=== PATIENT | male | born 1950 | race Caucasian/White ===

== ENCOUNTER 2019-02-25 08:10 | Day surgery (SDC) | payer BC, MEDICARE, OTHER, SELFPAY ==
[2019-02-25 08:33] VITALS: BP 132/83; PULSE 72; RESP 16; TEMP 36.4; O2SAT 97
[2019-02-25] MEDS: Lactated Ringers 1,000 ML 80 ML IV (08:41)
--- NOTE | 2019-02-25 10:59 | W.COLOREPORT ---
Date of service: 02/25/19 Time of Service: 11:00 Colonoscopy Report Date of procedure: 02/25/19 Pre-op diagnosis general: polyps/family hx of CRC Post-op diagnosis procedure note: other Procedure: CE- incomplete. Could not get passed R flexure Surgeon: Antonieta Boyer Estimated blood loss (mL): 0 Pathology: none sent Complications: None Disposition: same day Prep: Miralax/Dulcolax Retraction Time: 12 mins Procedure Description: After informed consent was obtained the patient was taken to the procedure room and placed in a left decubitous position. Monitors were applied and a time out was done. The patients name, date of , procedure, allergies to medications and metal in their body was reviewed. The patient was then sedated. Once sedated and comfortable a rectal exam was done. External exam was normal. Internal exam revealed a normal sphincter tone and no palpable masses. The prostate nl. The scope was then introduced and retrofelexed. I could not pass the scope through the R flexure. Twenty minutes was spent in trying to pass the scope- including pressure and mult different positions/repositioning. He does have severe diverticula that extend all the way to the right colon. There are no signs of active bleeding or infection. There were no polyps seen. no internal hemorrhoids were identified. The prep was good. The scope was then slowly retracted over 15 minutes back into the rectum. The scope was removed and the patient was woken up and taken back to Same day surgery in stable condition. He does need to have a BE for completeness. If this is negative- The patient tolerated the procedure well and there were no immediate complications. Follow up: The patient does not require any further colonoscopies.
--- NOTE | 2019-02-25 11:27 | W.PM.DSUDISC ---
Discharge Plan Disposition Patient Disposition: HOME Condition: Good Discharge Details Reason For Visit: colonoscopy Attending Provider: Antonieta Boyer Primary Care Provider: Isauro Bob Home Meds and New Rx's Prescriptions: Continued valsartan 160 mg tablet 160 mg PO DAILY Qty: 90 RF: 1 Excedrin Extra Strength 1 EACH tablet 1 ea PO p PRNRF: 0 aspirin [Aspirin Low-Strength] 81 MG tablet,chewable 81 mg PO DAILY RF: 0 diphenhydramine-acetaminophen [Acetaminophen PM] 1 EACH tablet 2 ea PO HS RF: 0 simvastatin 40 mg tablet 40 mg PO DAILY Qty: 90 RF: 3 Discharge Instructions Additional Instructions: Findings:Severe divertiuclar Dx. Can't complete the CE. Need to have BE in am. cl liquids only today. Nothing to eat or drink after midnight Please report to outpt radiology at 8:45am to register. Follow up:repeat CE in 5 yrs Please call if you develop: fevers >101.5 Nausea or Vomiting Abdominal pain that is not transient DAY SURGERY UNIT POST COLONOSCOPY INSTRUCTIONS 1. Because there will be medication in your system for the next 24 hours, you may feel a little sleepy. Your coordination will be affected. Therefore: a. Do not drive or operate dangerous equipment for 24 hours. b. Do not drink alcohol beverages for 24 hours (not even beer). c. Plan to go home and rest for the day. 2. Generally there are no restrictions on your activity after a day or so has gone by, but you may feel a bit fatigued for a few days. 3 After you arrive home you may have a light meal and return to a normal diet as you can tolerate it without feeling sick to your stomach. 4. After surgery, you may feel pain or discomfort. This should be only transient, but if it persists please contact your doctor. 5. If there are any questions regarding the findings of your procedure, please feel free to contact your doctor. 6. If you are unable to contact your doctor with a problem, contact the hospital at [phone]. 7. Continue all your regular medications unless directed otherwise. I understand the above instructions and have no questions. Signature of Patient or Responsible Adult Escort Date/Time Name of Responsible Adult Escort Signature of Nurse Date/Time Stand Alone Forms: Colonoscopy Post Instructions, Press Ganey (DSU) Diet:: cl liq only until the BE DS: Diagnosis Discharge Diagnosis (1) Adenoma of large intestine: Status: Acute (2) Diverticula of colon: Status: Acute
[2019-02-25 11:30] VITALS: BP 107/65; PULSE 72; RESP 16; TEMP 36.6; O2SAT 97
[2019-02-25 12:14] VITALS: BP 115/66; PULSE 53; RESP 20; TEMP 36; O2SAT 97
[2019-02-25 12:22] VITALS: BP 125/67; PULSE 56; RESP 18; TEMP 36.6; O2SAT 99
== END 2019-02-25 12:40 | disposition home or self-care (01) ==
PROVIDERS: PCP Family Medicine; Visit Provider Surgery
PROC: 0DJD8ZZ Inspection of Lower Intestinal Tract, Via Natural or Artificial Opening Endoscopic (ICD-10-PCS; CPT 45378; principal; 2019-02-25 09:15)
DX: Z12.11 Encounter for screening for malignant neoplasm of colon (principal); K57.30 Diverticulosis of large intestine without perforation or abscess without bleeding; Z86.010 Personal history of colon polyps; I10 Essential (primary) hypertension
CPT/HCPCS: 45378; J2250; J3010

== ENCOUNTER 2019-02-26 02:18 | Outpatient (CLI) | payer BC, MEDICARE, OTHER, SELFPAY ==
--- NOTE | 2019-02-26 10:50 | DI.RAD_ITS ---
EXAM: RF BARIUM ENEMA CLINICAL HISTORY: incomplete colonoscopy,h/o colonic polyps, family h/o colon TECHNIQUE: Full column barium enema. Patient tolerated the procedure well. COMPARISON: No exams were available for comparison FINDINGS: No mass or stricture is seen. There are innumerable diverticula throughout the colon, greatest in t he descending and sigmoid regions. The appendix and small bowel were visualized. IMPRESSION: Diverticulosis. No evidence of mass or stricture.
== END 2019-02-26 02:38 ==
PROVIDERS: PCP Family Medicine; Visit Provider Surgery
DX: D12.3 Benign neoplasm of transverse colon; K57.30 Diverticulosis of large intestine without perforation or abscess without bleeding; Z80.0 Family history of malignant neoplasm of digestive organs
CPT/HCPCS: 74270

== ENCOUNTER 2019-06-11 00:08 | Outpatient (CLI) | payer BC, MEDICARE, OTHER, SELFPAY ==
[2019-06-11 08:25] LABS: Calculated LDL 95 mg/dL (<100); Cholesterol 210 mg/dL (<200); HDL Cholesterol 104 mg/dL (40-60); Triglyceride 58 mg/dL (<150)
[2019-06-14 10:30] LABS: PSA, Screening 1.2 ng/mL (0.0-6.5)
== END 2019-06-11 00:28 ==
PROVIDERS: PCP Nurse Practitioner; Visit Provider Nurse Practitioner
DX: I10 Essential (primary) hypertension (principal); E78.2 Mixed hyperlipidemia; Z12.5 Encounter for screening for malignant neoplasm of prostate
CPT/HCPCS: 36415; 80061; 84153; 82565

== ENCOUNTER 2020-09-13 04:43 | Outpatient (CLI) | payer MEDICARE, OTHER, SELFPAY ==
[2020-09-13 11:51] LABS: CREATININE 0.9 mg/dL (0.70-1.30); Glucose 99 mg/dL (74-106)
[2020-09-13 12:21] LABS: Calculated LDL 78 mg/dL (<100); Cholesterol 216 mg/dL (<200); HDL Cholesterol 120 mg/dL (40-60); Triglyceride 90 mg/dL (<150)
== END 2020-09-13 04:44 | disposition home or self-care (01) ==
LOC: LBO 04:43
PROVIDERS: PCP Nurse Practitioner; Visit Provider Nurse Practitioner
DX: I10 Essential (primary) hypertension (principal); N52.9 Male erectile dysfunction, unspecified
CPT/HCPCS: 36415; 80061; 82947; 82565

== ENCOUNTER 2021-06-28 02:52 | Outpatient (CLI) | payer MEDICARE, OTHER, SELFPAY ==
[2021-06-28 11:31] LABS: ALT 50 U/L (16-63); AST 23 U/L (15-37); Albumin 4.4 g/dL (3.4-5.0); Alkaline Phosphatase 80 U/L (46-116); Anion Gap 8.4 mmol/L (3-11); BUN 13 mg/dL (7-18); Bilirubin, Total 0.6 mg/dL (0.2-1.0); CO2 28.6 mmol/L (21.0-32.0); Calcium 9.3 mg/dL (8.5-10.1); Chloride 101 mmol/L (98-107); Glucose 96 mg/dL (74-106); Potassium 3.9 mmol/L (3.5-5.1); Sodium 138 mmol/L (136-145); TSH (W/Ref FT4) 2.51 uIU/mL (0.36-3.74); Total Protein 7.3 g/dL (6.4-8.2)
== END 2021-06-28 02:53 | disposition home or self-care (01) ==
LOC: LBO 02:52
PROVIDERS: PCP Nurse Practitioner; Visit Provider Nurse Practitioner
DX: F41.9 Anxiety disorder, unspecified (principal); I10 Essential (primary) hypertension
CPT/HCPCS: 36415; 80053; 84443

== ENCOUNTER 2021-10-26 01:25 | Outpatient (CLI) | payer MEDICARE, OTHER, SELFPAY ==
[2021-10-26 07:59] LABS: Calculated LDL 91 mg/dL (<100); Cholesterol 213 mg/dL (<200); HDL Cholesterol 113 mg/dL (40-60); Triglyceride 45 mg/dL (<150)
== END 2021-10-26 01:26 | disposition home or self-care (01) ==
LOC: LBO 01:25
PROVIDERS: PCP Nurse Practitioner; Visit Provider Nurse Practitioner
DX: E78.2 Mixed hyperlipidemia (principal)
CPT/HCPCS: 36415; 80061

== ENCOUNTER 2021-11-29 11:28 | Inpatient (IN) | payer MEDICARE, OTHER, SELFPAY ==
[2021-11-29] VITALS (21 sets, daily range): BP systolic 134–167; BP diastolic 79–98; PULSE 53–72; RESP 9–24; TEMP 35.3–37.2; O2SAT 94–98
--- NOTE | 2021-11-29 11:45 | RT.EKG_ITS ---
APPROVED REPORT Exam: Resting ECG Reason for Exam: ?cva Patient Location: E HR:63 bpm ECG Measurements Heart Rate 63 AXIS WV 224 P 57 QRSd 79 QRS 52 QT 408 T 56 QTc 418 Conclusion Sinus rhythm...normal P axis, V-rate 60- 99 Prolonged WV interval...WV >220, V-rate 50- 90
--- NOTE | 2021-11-29 11:45 | DI.CT_ITS ---
Exam(s) CT HEAD WO EXAM: CT HEAD WO CLINICAL HISTORY: left hand and face numb. TECHNIQUE: Imaging Protocol: Axial computed tomography images with coronal and sagittal reformatted images were created and reviewed COMPARISON: No exams were available for comparison FINDINGS: There are no skull fractures. There is mucosal thickening and some fluid within the left maxillary sinus and there is a prominent medial wall surgical defect in the left maxillary sinus. Right maxill juan sinus is clear. Sphenoid and frontal sinuses as well as ethmoidal air cells are clear. Mastoid air cells are clear. There is no evidence of intracranial hemorrhage, mass effect, or shift of midline structures. There are no extra-axial fluid collections. The ventricles are not enlarged or shifted and there is no blo od within the ventricular system nor within the basal cisterns. There is calcification noted within both vertebral arteries at the skull base as well as within the i nternal carotid arteries skull base. IMPRESSION: No acute intracranial findings on this noninfused CT scan of the brain. Calcified internal carotid arteries and vertebral arteries at the skull base If clinically indicated follow-up MRI can be performed. Report called by myself to the ER provider RADIATION DOSE DELIVERED: 758.88mGy.cm Total DLP DATA REPOSITORY: All CT scans at this facility are submitted to the National Radiology Data Registry (NRDR) Dose Index Registry (DIR) with the [employer] (ACR). RADIATION OPTIMIZATION: All CT scans at this facility use at least one of these dose optimization te chniques: automated exposure control; mA and/or kV adjustment per patient size (includes targeted exa ms where dose is matched to clinical indication); or iterative reconstruction.
--- NOTE | 2021-11-29 11:54 | ED.GENADUL_ITS ---
Discharge Plan Disposition Patient Disposition: [facility] INPATIENT Condition: Stable Discharge Details Chief Complaint: GenMedical Clinical Impression: Acute CVA (cerebrovascular accident) Primary Care Provider: Jocelyne Harry ED Provider: Sam Yepez Home Meds and New Rx's Prescriptions: No Action atorvastatin 20 mg tablet 20 mg PO QPM Qty: 90 4RF Excedrin Extra Strength 1 EACH tablet 1 ea PO p PRN aspirin [Aspirin Low-Strength] 81 MG tablet,chewable 81 mg PO DAILY diphenhydramine-acetaminophen [Acetaminophen PM] 25-500 mg tablet 2 tab PO HS PRN amlodipine 5 mg tablet 5 mg PO DAILY Qty: 90 4RF valsartan 320 mg tablet 320 mg PO DAILY Qty: 90 4RF Medical Decision Making 71 yo male with hx of htn, hld, comes in with complaints of left facial numbness and a tingling sensation in his hand when he woke up this morning around 5am. He denies any changes in vision, changes in speech, gait difficulties or weakness. He arrives stable with a normal unassisted gait. He is caox4 with clear speech. He has no facial droop, eomi, perrl, no drift. He localizes the numbnes on his face over the left zygomatic arch. He can feel me touching in his area but states it feels different than his right side of his face. He has no deficits in sensation in his hands or legs with 5/5 strength in all extremities. His NIH is 0 so seems unlikely cva though given his age and risk factors will evaluate further with ct head, cbc, cmp, ekg and troponin. ct unremarkable and mri had a free time slot so mri and mra ordered, and he does have a small thalamic stroke. He remains stable, discussed with hospitalist who agrees with admission, will also give aspirin and plavix. Differential Diagnosis Differential Diagnosis: cva/tia, electrolyte abnormality, paresthesia Medical Records Medical records reviewed: Yes I reviewed the patient's medical records. Imaging Data Radiologic Study: Attestation: I personally reviewed and interpreted this imaging study as follows: Imaging: CT Scan Radiologist's impression: MPRESSION: No acute intracranial findings on this noninfused CT scan of the brain. Calcified internal carotid arteries and vertebral arteries at the skull base If clinically indicated follow-up MRI can be performed. Radiologic Study #2: Attestation: I personally reviewed and interpreted this imaging study as follows: Imaging: MRI Radiologist's impression: IMPRESSION: 1. No hemodynamically significant stenosis in the carotid arteries in the neck. 2. Patent bilateral vertebral arteries in the neck.? The left vertebral artery is dominant. Radiologic Study #3: Attestation: I personally reviewed and interpreted this imaging study as follows: Imaging: MRI Radiologist's impression: small thalamic stroke Lab Data Lab results reviewed: Yes I reviewed the patient's lab results. ECG Data Attestation: I personally reviewed and interpreted this ECG (s) as follows: Prior ECG tracings: not available for review Interpretation: sinus rhythm, rate of 63, no acute st t wave ischemic findings, pr 224 HPI General Mode of arrival: ambulatory . Date/Time Provider Initiated Documentation: 11/29/21 11:32 . Limitations to Documentation: no limitations . Information obtained by: patient . History of Present Illness 71 year old M presents to the emergency department with the chief complaint of numb on left face, and is localized to the face. Patient started experiencing this hour(s) (6) and it has been constant. No relieving factors improve symptom(s), No exacerbating factors reported . Patient notes other (tingling in left hand). Patient did receive the following treatments prior to arrival, none Related Data Home Medications Medication Instructions Recorded Confirmed [id number] 250 1 ea PO p PRN 01/30/15 11/29/21 mg-250 mg-65 mg tablet (Excedrin Extra Strength) aspirin 81 mg chewable tablet 81 mg PO DAILY 11/17/15 11/29/21 (Aspirin Low-Strength) diphenhydramine 25 2 tab PO HS PRN 05/25/19 11/29/21 mg-acetaminophen 500 mg tablet (Acetaminophen PM) atorvastatin 20 mg tablet 20 mg PO QPM #90 tabs 09/22/20 11/29/21 amlodipine 5 mg tablet 5 mg PO DAILY #90 tabs 11/14/21 11/29/21 valsartan 320 mg tablet 320 mg PO DAILY #90 tabs 11/26/21 11/29/21 Previous Rx's Medication Instructions Recorded atorvastatin 20 mg tablet 20 mg PO QPM #90 tabs 09/22/20 amlodipine 5 mg tablet 5 mg PO DAILY #90 tabs 11/14/21 valsartan 320 mg tablet 320 mg PO DAILY #90 tabs 11/26/21 Allergies Allergy/AdvReac Type Severity Reaction Status Date / Time CATNIP AdvReac Intermediate NASAL Uncoded 11/29/21 11:40 CONGESTION General Stated Complaint: GenMedical SUMANTH: 3 Review of Systems All systems reviewed & are unremarkable except as noted in HPI and below Constitutional Constitutional: Denies chills, Denies fever(s) and Denies weakness Eyes Eyes: Denies loss of vision Cardiovascular Cardiovascular: Denies chest pain and Denies dyspnea Respiratory Respiratory: Denies cough and Denies dyspnea Gastrointestinal Gastrointestinal: Denies abdominal pain, Denies nausea and Denies vomiting Musculoskeletal Musculoskeletal: Denies joint swelling Integumentary/Breasts Skin/Breast: Denies rash Neurologic Neurologic: Denies loss of vision and Denies weakness PFSH All Active Problems (Updated 11/29/21 @ 14:54 by Sam Yepez MD) Acute CVA (cerebrovascular accident) (Acute) Adenoma of large intestine (Acute 04/26/13) tubular adenoma 04/2013; repeat 5 yr colo- 2019- FIT testing in 5 years Essential hypertension (Acute 09/01/11) Impotence (Acute 03/31/12) Mixed hyperlipidemia (Acute 09/06/11) goal LDL<100; risk 12% calculated 02/2010 Sensorineural hearing loss, unspecified (Acute 09/06/11) Primary osteoarthritis of right hip (Chronic) Medical History Anxiety Diverticula of colon First degree AV block 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 Bruno Vertigo Surgical History Colonoscopy - IV Sedation (09/08/09) Dr Kingsley-colonoscopy to cecum,polypectomy and anoscopy w/banding of internal hemorrhoid Colonoscopy - IV Sedation (04/26/13) Dr Kingsley-colonoscopy to cecum,polypectomy and anoscopy w/banding of internal hemorrhoid H/O colonoscopy 02/27 with MAC- severe diverticulosis History of tonsillectomy S/P tendon repair left hand Toe nail issue (11/11/16) R great toe ingrown nail, Elli Family History Mother , lung cancer at age 84. Lung cancer Hypertension Hyperlipidemia Father , lung ca at age 80. Lung cancer Throat cancer Brother Heart disease Hypertension Brother Hyperlipidemia Hypertension Brother Hyperlipidemia Hypertension Son Hyperlipidemia Hypertension Son Alcohol abuse Depression Hyperlipidemia Hypertension Maternal Grandfather , age 75 Heart disease Stroke Paternal Grandfather , age 65 Colon cancer Maternal Grandmother , age 69 Lung cancer Stomach cancer Paternal Grandmother , age 79 Lung cancer Heart disease Stroke Social History Smoking/Tobacco Use Status: Former Tobacco Use tobacco type: cigarettes Quit Date: 05/12/78 Tobacco: How many years used: 15 Second Hand Exposure: Yes Smoking risk assessment performed?: Yes Alcohol Intake: current Alcohol Intake frequency: a few times a week Alcohol type: beer, wine and hard liquor Drug use: Never Substance use type: does not use Caregiver/Support person: No Household members: spouse Housing: house Number of Children: 5 Do you need help understanding health information?: Rarely current occupation: retired Pets and animals: Yes Pets and animals: cat(s) and dog(s) Sexually active: Yes Do you think of yourself as: straight/heterosexual Current gender identity: male What is your relationship status?: How often do you talk on the phone with friends or family?: three or more times per week How often do you get together with friends or relatives?: three or more times per week How often do you attend samaritan or mormonism services?: decline to answer Do you belong to any clubs or organized social groups?: yes Panel score (0-1 are the most socially isolated patients): 3 What type of physical activity do you participate in: walking Duration: 30-45 minutes/day Frequency: daily Alethea/Catholic: Caodaism Special alethea needs: No Seatbelt use: always Drive intox or ride 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 Working smoke detector in home: Yes Carbon monox detector in home: Yes Do you feel safe at home: Yes Do you feel safe in your relationship?: Yes Exam Const General: no acute distress Orientation: alert HENMT Head: normal to inspection Ears: external ears normal General nose exam: external nose normal Mouth: moist mucous membranes Eyes General: appearance normal, both eyes and all related structures Neck Neck: normal visual inspection Resp Effort & Inspection: normal respiratory effort and able to speak in complete sentences Cardio Rate: regular rate Skin General skin exam: no rashes or lesions noted Neuro General: patient alert and patient oriented x3 Extrem General: normal to inspection Psych Mental Status: mental status grossly normal Course Vital Signs Vital signs: Vital Signs Temperature 37.2 C 11/29/21 11:33 Pulse 69 11/29/21 11:33 Respiratory Rate 16 11/29/21 11:33 Blood Pressure 163/83 H 11/29/21 11:33 Pulse Oximetry 97 11/29/21 11:33 Temperature 37.2 C 11/29/21 11:33 Pulse 69 11/29/21 11:33 Respiratory Rate 16 11/29/21 11:33 Respiratory Effort 11/29/21 11:42 Respiratory Depth Normal 11/29/21 11:42 Respiratory Pattern Normal 11/29/21 11:42 Blood Pressure 163/83 H 11/29/21 11:33 Pulse Oximetry 97 11/29/21 11:33 Comment 11/29/21 11:33
--- NOTE | 2021-11-29 12:15 | DI.MRI_ITS ---
Exam(s) MR BRAIN WO EXAM: MR BRAIN WO CLINICAL HISTORY: ?cva TECHNIQUE: Multiplanar multisequence MRI of the brain was performed. COMPARISON: MR MR ANGIO BRAIN WO from 11/29/[address] HEAD WO from 11/29/2021 FINDINGS: CEREBRAL PARENCHYMA: There is no evidence of intracranial hemorrhage, mass effect, or shift of midline structures. There are no extra-axial fluid collections. Ventricles are not enlarged or shifted. There is no significant signal abnormality in the cerebellar hemispheres, nor within the lou and mid brain. However, there is a small focus of signal abnormality in the right lou which also exhibits s mall focus of restricted diffusion and is therefore a nonhemorrhagic acute lacunar infarct. Small ar ea of increased signal just lateral to this in the right external capsule seen on FLAIR and T2 imagin g but does not exhibit restricted diffusion. There is also an area of cortical signal abnormality on FLAIR imaging in the left frontal lobe but this is also negative for restricted diffusion on DWI. There is no prominent abnormal signal abnormality in the periventricular white matter. PITUITARY GLAND: No mass nor parasellar abnormality. No obvious abnormality in the cavernous sinuses. FLOW VOIDS: The expected flow void are noted. No evidence of obvious aneurysm nor obvious vascular ma lformation. PARANASAL SINUSES: Left maxillary sinus circumferential mucosal thickening and there is also large gomez rgical defect in the medial wall the left maxillary sinus. Right maxillary sinus is clear. ORBITS: No obvious findings. IMPRESSION: Findings are consistent with a small nonhemorrhagic acute lacunar infarct in the right thalamus. See separate MRA reports DATA REPOSITORY:
[2021-11-29 12:21] LABS: Abs Immature Grans 0.02 10^3/uL (0.0-0.06); Absolute Basophil Count 0.02 10^3/uL (0.0-0.2); Absolute Eosinophil Count 0.07 10^3/uL (0.0-0.7); Absolute Lymphocyte Count 0.96 10^3/uL (1.2-3.4); Absolute Monocyte Count 0.45 10^3/uL (0.1-0.8); Absolute Neutrophil Count 4.52 10^3/uL (1.2-6.7); Basophils % 0.3; Eosinophils % 1.2; HCT 43.6 % (40.0-50.0); HGB 14.8 g/dL (13.5-17.5); Immature Grans % 0.3; Lymphocytes % 15.9; MCH 31.6 pg (27.0-33.0); MCHC 33.9 % (32.0-36.0); MCV 93 fL (80-95); MPV 9.2 fL (8.0-11.0); Monocytes % 7.5; Neutrophils % 74.8; Platelet Count 193 10^3/uL (130-400); RBC 4.69 10^6/uL (4.36-5.78); RDW 13.2 % (11.8-14.1); RDW-SD 44.9 fL; WBC 6.04 10^3/uL (4.4-10.8)
[2021-11-29 12:49] LABS: ALT 28 U/L (16-63); AST 15 U/L (15-37); Albumin 4.3 g/dL (3.4-5.0); Alkaline Phosphatase 70 U/L (46-116); Anion Gap 9.8 mmol/L (3-11); BUN 17 mg/dL (7-18); Bilirubin, Total 0.5 mg/dL (0.2-1.0); CO2 25.2 mmol/L (21.0-32.0); CREATININE 0.8 mg/dL (0.70-1.30); Calcium 9.3 mg/dL (8.5-10.1); Chloride 106 mmol/L (98-107); Glucose 102 mg/dL (74-106); Sodium 141 mmol/L (136-145); TSH (W/Ref FT4) 2.47 uIU/mL (0.36-3.74); Total Protein 7.6 g/dL (6.4-8.2); Troponin I < 50 ng/L (<or=60)
--- NOTE | 2021-11-29 13:30 | DI.MRI_ITS ---
Exam(s) MR ANGIO BRAIN WO EXAM: MR ANGIO BRAIN WO CLINICAL HISTORY: stroke symptoms TECHNIQUE: Performed on 1.5 Anna unit with [id number] sequence COMPARISON: No exams were available for comparison FINDINGS: ANTERIOR CIRCULATION: Both internal carotid arteries are patent in the skull base-carotid canals as well as within the cave rnous sinuses. The ophthalmic arteries are originate in conventional fashion off of the intracaverno us internal carotid arteries and appear patent. The supraclinoid aspects of both internal carotid ar teries are patent. Left A1 segment is patent. The right A1 segment is very thin. Both anterior cer ebral arteries are patent. There is no aneurysm at the level of the anterior communicating artery. Both middle cerebral arteries are patent. No significant stenosis. No occlusion. No aneurysms. POSTERIOR CIRCULATION: The basilar artery is formed at the skull base by both vertebral arteries. Th e basilar artery ascends with normal luminal diameter. Distally it gives off patent bilateral superi or cerebellar arteries and above this level terminates as patent bilateral posterior cerebral arterie s. There are no posterior communicating arteries on either side of the [id number]. No aneurys m of the tip of the basilar artery. IMPRESSION: 1. Right A1 segment is occluded or highly stenotic. Left A1 segment is patent as are both anterior c erebral arteries. 2. No significant findings in the posterior circulation. Findings on this patient discussed by myself with the ER physician. DATA REPOSITORY:
--- NOTE | 2021-11-29 13:42 | DI.MRI_ITS ---
Exam(s) MR ANGIO NECK WO EXAM: MAGNETIC RESONANCE ANGIOGRAPHY OF THE NECK CLINICAL HISTORY: stroke symptoms. TECHNIQUE: Performed on 1.5 sherrie unit with [id number] sequence. CONTRAST MATERIAL: IV Contrast: None. COMPARISON: CT scan from earlier today was reviewed. Also MRI. FINDINGS: ANTERIOR CIRCULATION: The visualized common carotid arteries ascend with normal luminal diameters. T here is no significant stenosis at the left carotid bifurcation and proximal left internal carotid te rminal carotid artery and the left ICA is nicely patent above this level in the neck. Right common carotid artery exhibits normal diameter. There does not appear to be prominent stenosis at the carotid bifurcation and proximal right internal carotid artery. The right ICA above this lev el in the neck is patent. POSTERIOR CIRCULATION: Vertebral arteries are patent. There originated conventional fashion off of t he subclavian arteries. The left vertebral artery is dominant. No evidence of intraluminal thrombus nor dissection in either vertebral artery. At the skull base both vertebral arteries contribute to the formation of the basilar artery, with the left being dominant. IMPRESSION: 1. No hemodynamically significant stenosis in the carotid arteries in the neck. 2. Patent bilateral vertebral arteries in the neck. The left vertebral artery is dominant. DATA REPOSITORY:
[2021-11-29] MEDS: Clopidogrel 300 MG TAB 600 MG PO (15:12)
[2021-11-29 15:28] LABS: Source Nasal/Nares
[2021-11-29 15:54] LABS: Troponin I < 50 ng/L (<or=60)
--- NOTE | 2021-11-29 15:56 | DI.US_ITS ---
APPROVED REPORT EXAM: Comprehensive 2D, Doppler, and color-flow Echocardiogram Patient Location: ER Legal Technician: Lizzie Marcelino RDCS (AE) Indications: CVA Other Information Study Quality: Adequate Conclusion Normal left ventricular wall thickness and chamber size. Estimated ejection fraction is 55 to 60%. Wall motion is normal Normal right ventricular size and systolic function Both atria are normal in size There is no structural or hemodynamically significant valvular disease Wall motion Left Ventricle The left ventricle is normal size. The left ventricular systolic function is normal. The left ventric ular ejection fraction is within the normal range. There is normal left ventricular wall thickness. T here is normal LV segmental wall motion. There is no ventricular septal defect visualized. LVEF is 57 %. Right Ventricle The right ventricle is normal size. The right ventricular systolic function is normal. Atria The left atrium size is normal. The right atrium size is normal. The interatrial septum is intact wit h no evidence for an atrial septal defect. Aortic Valve The aortic valve is normal in structure. Aortic valve is trileaflet. There is no aortic valvular sten osis. No aortic regurgitation is present. Mitral Valve The mitral valve is normal in structure. No evidence of mitral valve stenosis. Trace mitral regurgita tion. Tricuspid Valve The tricuspid valve is normal in structure. There is no tricuspid valve stenosis. Trace tricuspid reg urgitation. Unable to assess PA pressure. Pulmonic Valve The pulmonary valve is normal in structure. There is no pulmonic valvular stenosis. Trace pulmonic re gurgitation. Great Vessels The aortic root is normal in size. The ascending aorta is normal in size. Aortic arch is not well vis ualized. IVC is normal in size and collapses >50% with inspiration. Pericardium There is no pericardial effusion. 2D Dimensions IVSD d PLAX 0.87 cm M: 0.6-1.2 LV Vol A2C d MOD 96.4 mL LVPW d PLAX 0.91 cm M: 0.6 - 1.2 LV Vol A4C d MOD 108.8 mL LVID d PLAX 4.24 cm M: 4.2 - 5.8 LA vol/ BSA A2C s A-L 21.5 mL/m2 LVDs 3.00 cm M: 2.5 - 4.0 LA vol/ BSA A4C s A-L 9.9 mL/m2 Ao Root d 3.01 cm M: 3.1 - 3.7 LA Vol/ BSA Biplane s A-L 16.6 mL/m2 RA Area A4C 16.17 cm2 LA Area A4C s MOD 9.30 cm2 RA Vol/ BSA A4C s A-L 20.9 mL/m2 LA Area A2C s MOD 15.60 cm2 Ao Asc Diam d 3.32 cm M: 2.6 - 3.4 LV EF A4C MOD 57.4 % LV EF Teichholz 56.3 % LV EF A2C MOD 56.6 % LVEF ([facility]) 56.62 % M: 52 - 72 LV EF Biplane MOD 56.6 % LV Volume 77.01 mL M: 62 - 150 SV 58.19 mL LV Volume Index 38.50 mL/m2 M: 34 - 74 SV Index 29.02 mL/m2 LV Vol Biplane MOD 102.8 mL FS 29.10 % M-Mode TAPSE 2.08 cm (M/F) >1.7 LV Diastology MV E' medial 0.062 (>0.07 m/s) E/A Ratio 0.8 LV E/e MED 9.65 (<14) MV E Vmax 0.60 (0.4-1.3 m/s) MV E' lateral 0.093 (>0.1 m/s) MV A Vmax 0.75 (0.4-1.3 m/s) LV E/e LAT 6.40 (<14) MV E/A Ratio 0.77 MV E/E' medial 9.67 MV E/E' lateral 6.45 Aortic Valve LVOT Area 3.72 cm2 AoV Area Vmax 2.61 cm2 LVOT Vmax 0.76 m/s AoV Area/ BSA (Vmax) 1.30 cm2/m2 LVOT Mean Jorge. 0.49 m/s AV Mean Jorge. 2.39 cm2 LVOT Peak Grad 2.3 mmHg AV Mean Jorge. Index 1.19 cm2/m2 LVOT Mean Grad 1.1 mmHg LVOT VTI 0.168 m LVOT Diam s 2.15 cm AoV Vmax 1.08 m/s Velocity Ratio 0.70 AoV Mean Jorge. 0.76 m/s AoV Peak Grad 4.7 mmHg LVOT SV 62.38 mL AoV Mean Grad 2.6 mmHg AoV VTI 0.223 m AoV Area VTI 2.79 cm2 AoV Area/ BSA (VTI) 1.39 cm/m2 Mitral Valve MV DT 267 (160-240 msec) MV PHT 77 msec MV Area PHT 2.85 cm2 MV VTI 0.252 m MV Area VTI 2.47 (4.0-6.0 cm2) Pulmonary Valve PV Vmax 0.92 (0.5-1.5 m/s) RVOT Peak Gr. 2.95 mmHg PV Peak Grad 3.4 mmHg RVOT Mean Gr. 1.40 mmHg PV Mean Grad 1.8 mmHg RVOT VTI 0.176 m PV VTI 0.163 m RVOT Vmax 0.86 m/s
--- NOTE | 2021-11-29 16:17 | NUR.NOTE ---
Pt admitted to med/surg, VSS, transferred in stretcher with tele, left with all belongings. Report called to Amanda WILKINS.
[2021-11-29 16:19] LABS: COVID-19 PCR Negative (Negative)
--- NOTE | 2021-11-29 17:07 | W.NEUROCONSU ---
Date of service: 11/29/21 Time of Service: 17:07 Assessment and Plan Assessment and plan (1) Acute CVA (cerebrovascular accident): Status: Acute Assessment and plan: Mr. Romero appears to have a very small right thalamic ischemic infarct/lacune but also with apparent secondary hemorrhage. Would not do DAPT at this time because of this. Hold anti-platelets for now. Would get a repeat CTH w/o at 12 hour post first CTH vs first thing in the am to look for expansion/presence of hemorrhage; or sooner if clinical symptoms change. If no evidence of hemorrhage, would resume clopidogrel 75mg daily for secondary stroke prevention - no aspirin. Work-up: -Telemetry with 30 day cleaning technician at discharge -A1c Medications: -antiplatelets as above -atorvastatin 80mg daily for secondary stroke prevention acutely with change to 40mg daily as an outpatient for goal LDL <70 Other: -Allow permissive hypertension -Probably doesn't need PT/OT; no deficits at present He should f/up in neurology clinic in 4-6weeks. History of Present Illness History of Present Illness Chief Complaint: stroke Narrative: Handedness: right. Mr. Romero is a 71 year-old man with hypertension, hyperlipidemia, prior large intestine tubular adenoma, anxiety, 1deg AV block, R hip OA, and chronic low back pain. Mr. Romero woke up with am with left cheek numbness and tingling in his left hand/fingers. His symptoms persisted as the morning went on such that he presented to the local urgent care and then referred to [facility] ER for possible stroke. He was not a candidate for tPA as he was outside of the time window and for minor symptoms. He was indeed found to have a stroke - very small - with concern for secondary hemorrhage. He takes 81mg aspirin daily and he was already given clopidogrel 600mg in the ER as hemorrhage was not initially noted on imaging. Clinically, he is stable vs improved. He feels his face is less numb but he has been rubbing it some much, he isn't sure. He has no headache. He is also on atorvastatin 20mg at baseline. He is also on valsartan and amlopdipine for his blood pressure but had run out of those medications a few days ago. Work-up: -CTH (11/29/21): no acute findings. I reviewed these images personally and this is my personal interpretation. -MRI brain (11/29/21): acute punctate ischemia in the R thalamus with surrounding hemosiderin deposit. In the same area there is a slightly larger hyperintensity on T2 with noting seen on T1 (isodense). He also has findings of a prior left frontal stroke. There is a also a hemosiderin deposit in the L basal ganglia which may represent prior hemorrhage or may be a calcification as seen on the CTH. I reviewed these images personally and this is my personal interpretation. -MRA head/neck (11/29/21): the proximal vertebral arteries are distorted due to motion artifact. The R A1 appears absent. I reviewed these images personally and this is my personal interpretation. -TTE: pending -LDL (10/26/21): 91 Review of Systems All systems reviewed & are unremarkable except as noted in HPI and below PFSH All Active Problems (Updated 11/29/21 @ 20:02 by Ryan Mayberry MD) DVT prophylaxis (Acute) Cerebrovascular accident (CVA) of right thalamus (Acute) Acute CVA (cerebrovascular accident) (Acute) Adenoma of large intestine (Acute 04/26/13) tubular adenoma 04/2013; repeat 5 yr colo- 2019- FIT testing in 5 years Essential hypertension (Acute 09/01/11) Impotence (Acute 03/31/12) Mixed hyperlipidemia (Acute 09/06/11) goal LDL<100; risk 12% calculated 02/2010 Sensorineural hearing loss, unspecified (Acute 09/06/11) Primary osteoarthritis of right hip (Chronic) Medical History Anxiety Diverticula of colon First degree AV block 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 Bruno Vertigo Surgical History Colonoscopy - IV Sedation (09/08/09) Dr Kingsley-colonoscopy to cecum,polypectomy and anoscopy w/banding of internal hemorrhoid Colonoscopy - IV Sedation (04/26/13) Dr Kingsley-colonoscopy to cecum,polypectomy and anoscopy w/banding of internal hemorrhoid H/O colonoscopy 02/27 with MAC- severe diverticulosis History of tonsillectomy S/P tendon repair left hand Toe nail issue (11/11/16) R great toe ingrown nail, Elli Family History Mother , lung cancer at age 84. Lung cancer Hypertension Hyperlipidemia Father , lung ca at age 80. Lung cancer Throat cancer Brother Heart disease Hypertension Brother Hyperlipidemia Hypertension Brother Hyperlipidemia Hypertension Son Hyperlipidemia Hypertension Son Alcohol abuse Depression Hyperlipidemia Hypertension Maternal Grandfather , age 75 Heart disease Stroke Paternal Grandfather , age 65 Colon cancer Maternal Grandmother , age 69 Lung cancer Stomach cancer Paternal Grandmother , age 79 Lung cancer Heart disease Stroke Social History Smoking/Tobacco Use Status: Former Tobacco Use tobacco type: cigarettes Quit Date: 05/12/78 Tobacco: How many years used: 15 Second Hand Exposure: Yes Smoking risk assessment performed?: Yes Alcohol Intake: current Alcohol Intake frequency: a few times a week Alcohol type: beer, wine and hard liquor Drug use: Never Substance use type: does not use Caregiver/Support person: No Household members: spouse Housing: house Number of Children: 5 Do you need help understanding health information?: Rarely current occupation: retired Pets and animals: Yes Pets and animals: cat(s) and dog(s) Sexually active: Yes Do you think of yourself as: straight/heterosexual Current gender identity: male What is your relationship status?: How often do you talk on the phone with friends or family?: three or more times per week How often do you get together with friends or relatives?: three or more times per week How often do you attend taoism or quaker services?: decline to answer Do you belong to any clubs or organized social groups?: yes Panel score (0-1 are the most socially isolated patients): 3 What type of physical activity do you participate in: walking Duration: 30-45 minutes/day Frequency: daily Alethea/Sikhism: Caodaism Special alethea needs: No Seatbelt use: always Drive intox or ride w/intox 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 81 Mg Tabec PO DAILY [facility] Atorvastatin Calcium 20 mg 11/29/21 20:00 Atorvastatin 20 Mg Tab PO QPM [facility] Clopidogrel Bisulfate 75 mg 11/30/21 08:30 Clopidogrel 75 Mg Tab PO DAILY [facility] Dimethicone/Zinc Oxide 0 gm 11/29/21 15:00 Anil Protect Cream 142 Gm Tube TP PRN PRN Docusate Sodium 100 mg 11/29/21 15:00 Docusate Sodium 100 Mg Cap PO TID PRN PRN IV Miscellaneous Supplies 1 each 11/29/21 12:00 Iv Access IV DIRECTED [facility] Magnesium Hydroxide 30 ml 11/29/21 15:00 Milk Of Magnesia 30 Ml Cup PO DAILY PRN PRN Polyethylene Glycol 17 gm 11/29/21 15:00 Polyethylene Glycol 3350 17 Gm Packet PO DAILY PRN PRN Constipation Sodium Chloride 0 ml 11/29/21 11:52 Normal Saline Flush 10 Ml Syr IVP PRN PRN Sodium Chloride 0 ml 11/29/21 20:00 Normal Saline Flush 10 Ml Syr IVP BID [facility] Valsartan 320 mg 11/30/21 08:30 Valsartan 80 Mg Tab PO DAILY [facility] Allergies CATNIP Adverse Reaction (Intermediate, Uncoded 11/29/21 11:40) NASAL CONGESTION Exam Narrative Exam Narrative: Physical Exam: Gen: Patient of apparent stated age, NAD Head and face: no facial or cranial abnormalities Neck: Supple, no meningismus, no occipital tenderness CV: + S1, S2, RRR, no murmur Resp: CTA B/L Abd: soft, nontender, nondistended Ext: No edema. No clubbing or cyanosis. No bony deformity. Neuro Exam: Language: fluency, naming, repetition, and comprehension intact; Mental Status: AAOx3, current events intact, fund of knowledge intact; Speech: no dysarthria Cranial nerves: Funduscopy: not performed CN II: visual redmond intact CN III, IV, : extraocular movements intact, no nystagmus, pupils symmetric and reactive to light CN V: face sensation intact to LT and PP CN VII: no facial asymmetry noted CN VIII: hearing intact bilaterally CN IX, X: palate rises symmetrically CN XI: trapezius/SCM 5/5 bilaterally CN XII: protrudes tongue symmetrically Sensory: intact to LT, PP in all extremities Motor: bulk and tone intact. Fine motor movements intact bilaterally. No pronator drift. Strength 5/5 throughout including the deltoids, biceps, triceps, wrist extensors, hip flexors, knee flexors, knee extensors, ankle flexors, and ankle extensors. Reflexes: 2+ at the biceps, triceps, brachioradialis, and patella; reduced at the achilles tendons bilaterally; toes down going bilaterally; Coordination: FTN and HTS intact bilaterally Gait: not tested Results Last Vital Signs Temp 96.4 F L 11/29/21 16:55 Pulse 58 L 11/29/21 16:55 Resp 18 11/29/21 16:55 BP 167/98 H 11/29/21 16:55 Pulse Ox 98 11/29/21 16:55 Labs Result diagrams: 11/29/21 12:10 11/29/21 12:10 Labs: Laboratory Results - last 24 hr 11/29/21 11/29/21 11/29/21 12:10 12:10 15:20 WBC 6.04 RBC 4.69 Hgb 14.8 Hct 43.6 MCV 93 MCH 31.6 MCHC 33.9 RDW 13.2 Plt Count 193 MPV 9.2 Immature Gran % 0.3 Neutrophils % 74.8 Lymphocytes % 15.9 Monocytes % 7.5 Eosinophils % 1.2 Basophils % 0.3 Nucleated RBC % 0.0 Absolute Neutrophils 4.52 Absolute Lymphocytes 0.96 L Absolute Monocytes 0.45 Absolute Eosinophils 0.07 Absolute Basophils 0.02 Sodium 141 Potassium 4.0 Chloride 106 Carbon Dioxide 25.2 Anion Gap 9.8 BUN 17 Creatinine 0.8 Estimated GFR/1.73 m2 >= 60.00 Glucose 102 Calcium 9.3 Magnesium 2.0 Total Bilirubin 0.5 AST 15 ALT 28 Alkaline Phosphatase 70 Troponin I < 50 < 50 Total Protein 7.6 Albumin 4.3 TSH 2.47 COVID-19 Source SARS-CoV-2 (PCR) 11/29/21 15:22 WBC RBC Hgb Hct MCV MCH MCHC RDW Plt Count MPV Immature Gran % Neutrophils % Lymphocytes % Monocytes % Eosinophils % Basophils % Nucleated RBC % Absolute Neutrophils Absolute Lymphocytes Absolute Monocytes Absolute Eosinophils Absolute Basophils Sodium Potassium Chloride Carbon Dioxide Anion Gap BUN Creatinine Estimated GFR/1.73 m2 Glucose Calcium Magnesium Total Bilirubin AST ALT Alkaline Phosphatase Troponin I Total Protein Albumin TSH COVID-19 Source Nasal/Nares SARS-CoV-2 (PCR) Negative
--- NOTE | 2021-11-29 18:43 | HPE_ITS ---
Date of service: 11/29/21 Time of Service: 18:43 Assessment and Plan Assessment and plan (1) Cerebrovascular accident (CVA) of right thalamus: Status: Acute Assessment and plan: Hold Plavix and aspirin for tonight. Check CT scan of the brain in the morning if there is no significant progression of hemorrhage then resume Plavix at 75 mg daily. Continue current dose of atorvastatin but check lipid profile. Goal is for an LDL under 70. Check glycohemoglobin A1c. Continue current antihypertensives but avoid significant hypotension. Obtain 30-day cardiac event recorder upon discharge. Follow-up with Dr. Rosie Murphy in 4 to 6 weeks. Professional time spent interviewing and examining patient, discussion of goals of care with hospital team (care management, nursing and consulting pro fessionals) and placing orders and documenting findings was 60 minutes. (2) Essential hypertension: Status: Acute Assessment and plan: Continue valsartan and amlodipine with holding parameters for systolic blood pressure under 120. (3) Mixed hyperlipidemia: Status: Acute Assessment and plan: Continue atorvastatin 20 mg every afternoon. Check lipid profile in the morning (4) DVT prophylaxis: Status: Acute History of Present Illness History of Present Illness Chief Complaint: Left facial numbness Narrative: 71-year-old right-handed male with history of hyperlipidemia and hypertension usually well controlled with systolic blood pressures running in the 120s presented to the emergency department cute onset of left facial numbness over the left malar area extending to the left nasolabial fold. He first noticed this when he went to shave after waking up around 5 AM. He also had some associated tingling in his left hand but no weakness. When he went to bed at 8 PM last night he had no symptoms. He denies any headaches, blurred vision, dysarthric speech, focal visual loss, or motor weakness in any of his limbs. He thought it would go away on its own and went about his business doing his erran ds but when the symptoms persisted he presented to the [facility] and was referred to the emergency department where he arrived at 11:33 AM. By that time his left facial numbness had improved to where it was barely noticeable. He underwent evaluation including a CT scan of his head and then later had an MRI scan of the brain as well as MRA of the cerebral and cervical vessels. CT of the head showed no acute intracranial findings on a noncontrast CT scan of the brain. He has some calcifications of his internal carotid arteries and vertebral arteries. MRI of the brain was read as showing a small nonhemorrhagic acute lacunar infarct in the right thalamus. On the MRA of the brain he was found to have an A1 segment that was occluded or highly stenotic whereas the left A1 segment was patent both anterior cerebral arteries are patent. He had no significant findings in the posterior circulation. MRI of the brain showed no hemodynamically significant stenosis in the carotid arteries in the neck. Vertebral arteries in the neck are patent with a dominant left vertebral artery. Patient was treated with Plavix 600 mg. He had already taken his 81 mg aspirin for the day. Patient is now admitted to the medical/surgical floor for telemetry monitoring and monitoring for further stroke symptoms. Consultation has been obtained with Dr. Rosie Murphy. See her note for details. She has some concerns that the lacunar infarct has some hemorrhage on the MRI scan for this reason she is requesting that we withhold further antiplatelet therapy until we can repeat a CT scan of his head in the morning. Patient currently is stable and denies any headaches and has had no further progression of his neurologic symptoms. In fact his neurologic symptoms have improved he denies any numbness or tingling in his left hand or arm at the present time and the facial numbness is barely noticeable. Review of Systems All systems reviewed & are unremarkable except as noted in HPI and below Constitutional Constitutional: Denies headache(s) and Denies weakness Eyes Eyes: Denies blind spots, Denies blurry vision, Denies change in vision, Denies diplopia, Denies loss of peripheral vision and Denies loss of vision ENT Ears, Nose, Mouth, and Throat: Reports vertigo (Intermittent vertigo but none today) and Denies headache(s) Cardiovascular Cardiovascular: Denies chest pain, Denies syncope, Denies rapid heart rate, Denies irregular heart rhythm, Denies lightheadedness, Denies palpitations and Denies dyspnea Respiratory Respiratory: Denies dyspnea Neurologic Neurologic: Reports as per HPI, Denies abnormal movements, Denies abnormal speech, Denies confusion, Reports vertigo (Intermittent vertigo but none today), Denies syncope, Denies headache(s), Denies lack of coordination, Denies localized weakness, Denies loss of vision, Reports sensory deficit (Left face) and Denies weakness Psychiatric Psychiatric: Denies confusion Endocrine Endocrine: Denies palpitations PFSH All Active Problems (Updated 11/29/21 @ 20:02 by Ryan Mayberry MD) DVT prophylaxis (Acute) Cerebrovascular accident (CVA) of right thalamus (Acute) Acute CVA (cerebrovascular accident) (Acute) Adenoma of large intestine (Acute 04/26/13) tubular adenoma 04/2013; repeat 5 yr colo- 2019- FIT testing in 5 years Essential hypertension (Acute 09/01/11) Impotence (Acute 03/31/12) Mixed hyperlipidemia (Acute 09/06/11) goal LDL<100; risk 12% calculated 02/2010 Sensorineural hearing loss, unspecified (Acute 09/06/11) Primary osteoarthritis of right hip (Chronic) Medical History Anxiety Diverticula of colon First degree AV block 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 Bruno Vertigo Surgical History Colonoscopy - IV Sedation (09/08/09) Dr Kingsley-colonoscopy to cecum,polypectomy and anoscopy w/banding of internal hemorrhoid Colonoscopy - IV Sedation (04/26/13) Dr Kingsley-colonoscopy to cecum,polypectomy and anoscopy w/banding of internal hemorrhoid H/O colonoscopy 02/27 with MAC- severe diverticulosis History of tonsillectomy S/P tendon repair left hand Toe nail issue (11/11/16) R great toe ingrown nail, Elli Family History Mother , lung cancer at age 84. Lung cancer Hypertension Hyperlipidemia Father , lung ca at age 80. Lung cancer Throat cancer Brother Heart disease Hypertension Brother Hyperlipidemia Hypertension Brother Hyperlipidemia Hypertension Son Hyperlipidemia Hypertension Son Alcohol abuse Depression Hyperlipidemia Hypertension Maternal Grandfather , age 75 Heart disease Stroke Paternal Grandfather , age 65 Colon cancer Maternal Grandmother , age 69 Lung cancer Stomach cancer Paternal Grandmother , age 79 Lung cancer Heart disease Stroke Social History Smoking/Tobacco Use Status: Former Tobacco Use tobacco type: cigarettes Quit Date: 05/12/78 Tobacco: How many years used: 15 Second Hand Exposure: Yes Smoking risk assessment performed?: Yes Alcohol Intake: current Alcohol Intake frequency: a few times a week Alcohol type: beer, wine and hard liquor Drug use: Never Substance use type: does not use Caregiver/Support person: No Household members: spouse Housing: house Number of Children: 5 Do you need help understanding health information?: Rarely current occupation: retired Pets and animals: Yes Pets and animals: cat(s) and dog(s) Sexually active: Yes Do you think of yourself as: straight/heterosexual Current gender identity: male What is your relationship status?: How often do you talk on the phone with friends or family?: three or more times per week How often do you get together with friends or relatives?: three or more times per week How often do you attend jewish or sabianist services?: decline to answer Do you belong to any clubs or organized social groups?: yes Panel score (0-1 are the most socially isolated patients): 3 What type of physical activity do you participate in: walking Duration: 30-45 minutes/day Frequency: daily Alethea/[employer] Special alethea needs: No Seatbelt use: always Drive intox or ride w/intox 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: No Working smoke detector in home: Yes Carbon monox detector in home: Yes Do you feel safe at home: Yes Do you feel safe in your relationship?: Yes Meds Allergies and Home Medications Allergies Allergy/AdvReac Type Severity Reaction Status Date / Time CATNIP AdvReac Intermediate NASAL Uncoded 11/29/21 11:40 CONGESTION Home Medications Medication Instructions Recorded Confirmed Type oxyiqva-vekaelkbdohxb-zmemtibc 250 1 ea PO p PRN 01/30/15 11/29/21 History mg-250 mg-65 mg tablet (Excedrin Extra Strength) aspirin 81 mg chewable tablet 81 mg PO DAILY 11/17/15 11/29/21 History (Aspirin Low-Strength) diphenhydramine 25 2 tab PO HS PRN 05/25/19 11/29/21 History mg-acetaminophen 500 mg tablet (Acetaminophen PM) atorvastatin 20 mg tablet 20 mg PO QPM #90 tabs 09/22/20 11/29/21 Rx amlodipine 5 mg tablet 5 mg PO DAILY #90 tabs 11/14/21 11/29/21 Rx valsartan 320 mg tablet 320 mg PO DAILY #90 tabs 11/26/21 11/29/21 Rx Exam Narrative Exam Narrative: Alert and oriented x4 HEENT: Atraumatic normocephalic, pupils equally round reactive to light and accommodation, extraocular motion intact, TMs intact, nares moist and patent without exudate or bleeding, oropharynx noninjected without exudate, teeth in good repair Neck: Supple, nontender, without thyromegaly or lymphadenopathy or JVD. Normal carotid pulses Lungs: Clear to auscultation and percussion Heart: Regular rate and rhythm without murmur rub or gallop. Normal apical impulse Abdomen: Nondistended, normal bowel sounds, nontender to palpation or percussion, no organomegaly, no bruits, no palpable masses Genitalia and rectal exam: Deferred Extremities: Normal range of motion with normal strength. No peripheral cyanosi s or edema. Normal pulses Neurologic: Cranial nerves II through XII grossly within normal limits. Normal strength and sensation over the trunk and extremities, with just a slight decrease sensation to light touch over the left malar eminence and left nasolabial fold. DTRs within normal limits. No tremors or asterixis. No dysdiadochokinesia. Results Imaging Additional studies: CT of the head, MRI of the brain, MRA of the brain and cervical vessels were reviewed and discussed with Dr. Rosie Murphy Labs Result diagrams: 11/29/21 12:10 11/29/21 12:10 Labs: Laboratory Results - last 24 hr 11/29/21 11/29/21 11/29/21 12:10 12:10 15:20 WBC 6.04 RBC 4.69 Hgb 14.8 Hct 43.6 MCV 93 MCH 31.6 MCHC 33.9 RDW 13.2 Plt Count 193 MPV 9.2 Immature Gran % 0.3 Neutrophils % 74.8 Lymphocytes % 15.9 Monocytes % 7.5 Eosinophils % 1.2 Basophils % 0.3 Nucleated RBC % 0.0 Absolute Neutrophils 4.52 Absolute Lymphocytes 0.96 L Absolute Monocytes 0.45 Absolute Eosinophils 0.07 Absolute Basophils 0.02 Sodium 141 Potassium 4.0 Chloride 106 Carbon Dioxide 25.2 Anion Gap 9.8 BUN 17 Creatinine 0.8 Estimated GFR/1.73 m2 >= 60.00 Glucose 102 Calcium 9.3 Magnesium 2.0 Total Bilirubin 0.5 AST 15 ALT 28 Alkaline Phosphatase 70 Troponin I < 50 < 50 Total Protein 7.6 Albumin 4.3 TSH 2.47 COVID-19 Source SARS-CoV-2 (PCR) 11/29/21 15:22 WBC RBC Hgb Hct MCV MCH MCHC RDW Plt Count MPV Immature Gran % Neutrophils % Lymphocytes % Monocytes % Eosinophils % Basophils % Nucleated RBC % Absolute Neutrophils Absolute Lymphocytes Absolute Monocytes Absolute Eosinophils Absolute Basophils Sodium Potassium Chloride Carbon Dioxide Anion Gap BUN Creatinine Estimated GFR/1.73 m2 Glucose Calcium Magnesium Total Bilirubin AST ALT Alkaline Phosphatase Troponin I Total Protein Albumin TSH COVID-19 Source Nasal/Nares SARS-CoV-2 (PCR) Negative Last Vital Signs Temp 35.8 C L 11/29/21 16:55 Pulse 58 L 11/29/21 16:55 Resp 18 11/29/21 16:55 BP 167/98 H 11/29/21 16:55 Pulse Ox 98 11/29/21 16:55 PAWSS Have you Been Recently Intoxicated or Drunk Within the Last 30 days?: Yes Have you Ever Experienced Previous Episodes of Alcohol Withdrawal?: No Have you ever Experienced Withdrawal Seizures?: No Have you ever Experienced Delirium Tremens(DT)s?: No Have you ever undergone Alcohol Rehabilitation Treatment (i.e, inpt ot outpatient treatment programs)?: No Have you ever Experienced Blackouts?: No Have you ever Combined Alcohol with other Downers within the last 90 days?: No Have you ever Combined Alcohol with any other Substance of Abuse during the last 90 days?: No Positive Blood Alcohol level on Presentation? [PCS.BAL]: No Evidence of Increased Autonomic Activity (i.e. HR>120, tremor, sweating, agitation, nausea)?: No Result: 1
[2021-11-29] MEDS: Atorvastatin 20 MG TAB PO (20:18)
[2021-11-29] MEDS: Normal Saline Flush 10 ML SYR IVP (20:18)
[2021-11-30 03:16] VITALS: BP 129/74; PULSE 55; RESP 14; TEMP 35.6; O2SAT 97
--- NOTE | 2021-11-30 07:41 | DI.CT_ITS ---
Exam(s) CT HEAD - STROKE PROTOCOL EXAM: CT HEAD - STROKE PROTOCOL CLINICAL HISTORY: Thalamic CVA. TECHNIQUE: Imaging Protocol: Axial computed tomography images with coronal and sagittal reformatted images were created and reviewed COMPARISON: MR MR BRAIN WO from 11/29/2021 FINDINGS: Ventricles and Extra axial spaces: Normal in size and morphology for the patient's age. Hemorrhage: None. Cerebral parenchyma: Small area of old infarction left frontal lobe. Tiny acute infarct seen on prio r MRI in the right thalamus is not visible by CT. Midline shift: None. Brainstem/Cerebellum: Normal. Calvarium: Normal. Visualized Paranasal sinuses/Mastoids: Mucous retention at the floor of the left maxillary sinus. Pr ior left maxillary sinus surgery. Soft Tissues: Unremarkable. IMPRESSION: No acute intracranial process. RADIATION DOSE DELIVERED: 727.37mGy.cm Total DLP DATA REPOSITORY: All CT scans at this facility are submitted to the National Radiology Data Registry (NRDR) Dose Index Registry (DIR) with the [employer] (ACR). RADIATION OPTIMIZATION: All CT scans at this facility use at least one of these dose optimization te chniques: automated exposure control; mA and/or kV adjustment per patient size (includes targeted exa ms where dose is matched to clinical indication); or iterative reconstruction.
[2021-11-30 07:47] VITALS: BP 149/84; PULSE 52; RESP 18; TEMP 35.7; O2SAT 98
--- NOTE | 2021-11-30 07:54 | DI.VRAD_ITS ---
PROCEDURE INFORMATION: Exam: CT Head Without Contrast Exam date and time: 11/30/2021 7:35 AM Age: 71 years old Clinical indication: Stroke-like symptoms; Left upper extremity numbness/paresthesia TECHNIQUE: Imaging protocol: Computed tomography of the head without contrast. Radiation optimization: All CT scans at this facility use at least one of these dose optimization techniques: automated exposure control; mA and/or kV adjustment per patient size (includes targeted exams where dose is matched to clinical indication); or iterative reconstruction. Other technique: STROKE PROTOCOL was implemented. COMPARISON: MR BRAIN WO 11/29/2021 12:58 PM FINDINGS: Brain: Mild involutional changes of the brain parenchyma. Small stable focus of encephalomalacia with loss of frye-white matter differentiation in the left frontal lobe, consistent with old infarct. Frye-white matter differentiation is otherwise well maintained. No evidence of acute infarct. No intraparenchymal hemorrhage. No midline shift or mass effect. No extra-axial fluid collections or hemorrhage. Cerebral ventricles: No ventriculomegaly. Paranasal sinuses: Visualized sinuses are unremarkable. No fluid levels. Mastoid air cells: Visualized mastoid air cells are well aerated. Bones/joints: Unremarkable. No acute fracture. Soft tissues: Unremarkable. IMPRESSION: No evidence of acute intracranial abnormality. ASSESSMENT: ASPECTS (Jeannette Stroke Program Early CT Score) is 10. Dictated and Authenticated by: Cassy Wesley MD. Ordering:[facility] Shawanda Davis MD
[2021-11-30] MEDS: amLODIPine 5 MG TAB PO (08:42)
[2021-11-30] MEDS: Normal Saline Flush 10 ML SYR IVP (08:42)
[2021-11-30] MEDS: Valsartan 80 MG TAB 320 MG PO (08:42)
--- NOTE | 2021-11-30 09:15 | PT.INIE ---
Date of service: 11/30/21 Time of Service: 09:15 PT Notes Visit Reasons: Thalamic stroke Physical Therapy Inpatient Initial Evaluation Date: 11/30/2021 Referring Doctor: Ryan Mayberry MD PT Orders: PT CONSULT: Fall Safety assessment Precautions: Fall. Standard. Activity as tolerated. Patient Profile/Admitting Diagnosis: Patient is a 71-year-old male who presented to the ED on 11/29/2021 on 11/29/2021 due to tingling sensation in the hand and this am with acute onset of L facial numbness. Patient is diagnosed with acute lacunar infarct CVA, esential HTN, mixed hyperlipidemia. PMHX: All Active Problems?(Updated 11/29/21 @ 20:02 by Ryan Mayberry MD) DVT prophylaxis (Acute) Cerebrovascular accident (CVA) of right thalamus (Acute) Acute CVA (cerebrovascular accident) (Acute) Adenoma of large intestine (Acute 04/26/13) tubular adenoma 04/2013; repeat 5 yr colo- 2019- FIT testing in 5 years Essential hypertension (Acute 09/01/11) Impotence (Acute 03/31/12) Mixed hyperlipidemia (Acute 09/06/11) goal LDL<100; risk 12% calculated 02/2010 Sensorineural hearing loss, unspecified (Acute 09/06/11) Primary osteoarthritis of right hip (Chronic) Medical History? 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 Bruno Vertigo Surgical History? Colonoscopy - IV Sedation (09/08/09) Dr Kingsley-colonoscopy to cecum,polypectomy and anoscopy w/banding of internal hemorrhoid Colonoscopy - IV Sedation (04/26/13) Dr Kingsley-colonoscopy to cecum,polypectomy and anoscopy w/banding of internal hemorrhoid H/O colonoscopy 02/27 with MAC- severe diverticulosis History of tonsillectomy S/P tendon repair left hand Toe nail issue (11/11/16) R great toe ingrown nail, Elli Social History/Home Situation: Lives with in a private home. Independent with all aspects of ADLs prior to admission. Equipment Owned/DME: None Subjective: Patient is agreeable to consult. Objective: General Observation: Seated on beside chair. No facial asymmetry. Mental Status: Alert and oriented as to person, place, time, and purpose. Able to pay attention, focus, and respond appropriately. Pain: Denies Vital Signs: WNL as closely monitored ROM: Right Upper Extremity: Shoulder Flexion WFL. Shoulder abduction WFL. Elbow flexion WFL. Wrist flexion WFL. Functional opening and closing of hand WFL. Left Upper Extremity: Shoulder Flexion WFL. Shoulder abduction WFL. Elbow flexion WFL. Wrist flexion WFL. Functional opening and closing of hand WFL. Right Lower Extremity: Hip flexion WFL. Hip abduction WFL. Knee flexion WFL. Ankle dorsiflexion WFL. Ankle plantarflexion WFL. Left Lower Extremity: Hip flexion WFL. Hip abduction WFL. Knee flexion WFL. Ankle dorsiflexion WFL. Ankle plantarflexion WFL. Strength: Right Upper Extremity: Shoulder flexors 5/5. Shoulder abductors 5/5. Elbow flexors 5/5. Elbow extensors 5/5. Civil Service Clerk strong. Left Upper Extremity: Shoulder flexors 5/5. Shoulder abductors 5/5. Elbow flexors 5/5. Elbow extensors 5/5. Civil Service Clerk strong. Right Lower Extremity: Hip flexors 4/5. Hip abductors 4/5. Knee flexors 5/5. Knee extensors 5/5. Ankle dorsiflexors 5/5. Ankle plantarflexors 5/5. Left Lower Extremity: Hip flexors 5/5. Hip abductors 5/5. Knee flexors 5/5. Knee extensors 5/5. Ankle dorsiflexors 5/5. Ankle plantarflexors 5/5. Bed Mobility/Transfers: Rolling independent Supine to sit independent Sit to supine independent Sit to stand independent Stand to sit independent Bed to bedside commode independent Bedside commode to bed independent Bed to reclining chair independent Reclining chair to bed independent Gait: Instructed patient with level surface ambulation of 500 feet independently. No gait deviation noted. No LOB. No SOB. Stairs: Up and down 6 x 4-inch steps and 4 x 6-inch steps independently without holding onto B rails Balance: Static Sitting: Normal Dynamic Sitting: Normal Static Standing: Normal Dynamic Standing: Good Special Tests: Mobility Limitations Standardized 0Measure [facility] AM-PAC 6 clicks Basic Mobility Inpatient Short Form: Raw Score: 24 CMS Score: 0% deficit Informed Consent/Education: Patient was instructed in purpose of PT consult and plan of care. Agreeable to proceed with established PT POC to achieve personal goals. Assessment: Patient is at baseline mobility level. No skilled services needed at this time. Patient is assessed as a [id number] low complexity based on the following: History: 71-year-old female with past medical history as indicated above Examination: Demonstrable impairment in strength, balance, and mobility level with underlying impairments and functional limitations as exhibited above as well as deficit score of 0% utilizing the [facility] Mobility Inpatient Short Form Presentation: Evolving Decision Makin low complexity Goals: N/A. Patient evalaution only. Plan of Care/Treatment Plan: N/A. Patient evalaution only. DISCHARGE RECOMMENDATIONS: [X] Home with no services. [] Home with services [specify] [] Home with outpatient PT [] [] SNF for continued rehabilitation [] [] Biomedical Engineering Technician Care [] [] SNF versus LTC based on ability to participate and progress [] TREATMENT CODE/TIME: 30008 x 25 minutes beginning at 9:15 AM. Thank you for the opportunity to participate in the care of this patient. Clarissa Gallagher PT, DPT, CLT [facility] [place], [place]
--- NOTE | 2021-11-30 10:38 | W.PM.DS.N ---
Date of service: 11/30/21 Time of Service: 10:38 DS: Diagnosis Discharge Diagnosis (1) Acute CVA (cerebrovascular accident): Status: Acute Asessment and Plan: patient presented w/ acute onset of left facial numbness and tingling in his left hand but no paresis, visual changes or dysarthria. He presented late to the ED (4 1/2 hours after onset of symptoms). CT scan was negative on admission. MRI demonstrated right lacunar thalamic CVA and MRA of brain and cervical vessels did not demonstrate any hemodynamic stenosis or occlusion of the vessels in his neck but showed an occlusion vs high grade stenoeis of A1 segment of right LINK. He was given Plavix 600 mg and aspirin 243 mg in the ED (patient already had taken his ASA 81 mg which he takes daily. His symptoms were improving by the time he was admitted. He was admitted overnight and monitored on telemetry but did not have any atrial or ventricular dysrhythmias. Dr. Rosie Murphy, neurology was consulted. She was concerned that he has a small area of hemorrhage around the lacunar infarct. Unclear as to wether this was a primary or secondary bleed but a secondary hemorrhage d/t an acute thrombotic stroke was suspected. She recommended holding any antiplatelet therapy overnight, monitor him for any worsening neurolgic symptoms and repeat his CT of his head the following morning to look for any progression in bleeding. The patient did well overnight and had no further facial numbness and no other neurologic symptoms. Repeat CT scan did not show any bleeding. She recommended discharge on Plavix alone, not DAPT w/ aspirin. She did agree to continued use of statins and requested 30 day cardiac event recorder and follow up with her in 4 to 6 weeks. Discharge Plan Disposition Patient Disposition: HOME Condition: Improving Discharge Details Reason For Visit: Thalamic Stroke Admit Date/Time: 11/29/21 14:51 Admit Provider: Ryan Mayberry Attending Provider: Ryan Mayberry Primary Care Provider: Jocelyne Harry Home Meds and New Rx's Prescriptions: New clopidogrel [Plavix] 75 mg tablet 75 mg PO DAILY Qty: 30 3RF Continued atorvastatin 20 mg tablet 20 mg PO QPM Qty: 90 4RF Excedrin Extra Strength 1 EACH tablet 1 ea PO p PRN diphenhydramine-acetaminophen [Acetaminophen PM] 25-500 mg tablet 2 tab PO HS PRN amlodipine 5 mg tablet 5 mg PO DAILY Qty: 90 4RF valsartan 320 mg tablet 320 mg PO DAILY Qty: 90 4RF Discontinued aspirin 81 mg Tablet,Delayed Release (Dr/Ec) 81 mg PO DAILY Discharge Instructions Instructions: Clopidogrel (By mouth), Ischemic Stroke (DC) Additional Instructions: You have been given a replacement for your aspirin. You will now take Plavix 75 mg once a day. You should stop your aspirin. You have been set up for a 30 day cardiac event recorder. This is being done to monitor your heart rhythm to be sure that you do not have a condition called atrial fibrillation. Atrial fibrillation increases a person's risk for stroke due to blood clots that will form in the heart from this irregular heart rhythm. Your primary care and your neurologist will go over the results of your heart monitor. Stand Alone Forms: Nursing Discharge Form Referrals: Jocelyne Harry NP [Primary Care Provider] - 12/04/21 10:40 am ( ) Rosie Murphy MD [ [facility] ST[facility]FF PHYSICIAN] - 01/15/22 1:30 pm Activity:: Activity as Tolerated Equipment/Supplies:: No Equipment Needed Diet:: low cholesterol Discharge Orders Discharge Orders: Discharge Order (Routine); Ordered 11/30/21 Ordered By: Ryan Mayberry Discharge Data Discharge Date/Time-TO BE ENTERED AT DEPARTURE: 11/30/21 13:48 DS: Summary Time Spent with Patient providing and/or coordinating discharge services: Less than 30 minutes Status at Discharge Functional status at discharge: independent ambulation Overall status at discharge: patient is back to baseline Mental Status: mental status grossly normal Speech and Movement: speech and movement normal Mood: congruent mood Affect: normal affect Exam Narrative Exam Narrative: Martell denies any numbness or weakness. No dysarthria, no dysphagia and no focal paresis. I had him walk and he had normal gait and balance, normal ROM and strength in all limbs; normal facial mimetic movement and normal sensation to light touch over his face and limbs. VF are grossly normal Psych Mental Status: mental status grossly normal Speech and Movement: speech and movement normal Mood: congruent mood Affect: normal affect DS: Data Vitals/I&O Vitals and I&O: Vital Signs Temperature 35.7 C L 11/30/21 07:47 Temperature Source Tympanic 11/30/21 07:47 Pulse 52 L 11/30/21 07:47 Pulse Rhythm Regular 11/30/21 08:39 Pulse 58 L 11/29/21 14:20 Respiratory Rate 18 11/30/21 07:47 Respiratory Effort Non-Labored 11/30/21 08:39 Respiratory Depth Normal 11/30/21 08:39 Respiratory Pattern Normal 11/30/21 08:39 Blood Pressure 149/84 H 11/30/21 07:47 Blood Pressure Mean 99 11/29/21 14:01 Pulse Oximetry 98 11/30/21 07:47 Oxygen Delivery Method Room Air 11/30/21 07:47 Oxygen Flow Rate 0 11/30/21 07:47 Pain Level 0 11/30/21 07:47 Comment 11/29/21 11:33 Intake & Output 11/29/21 11/29/21 11/30/21 11:59 23:59 11:59 Intake Total 240 / 240 Balance 240 / 240 Weight 82.554 kg 82.554 kg Intake: IV Oral 240 / 240 Other: Urine Appearance Clear Clear Comment pT uses bathroom independently. Voiding Methods Toilet Data Completed and Pending Labs on day of discharge: Labs from last 24 hours 11/29/21 11/29/21 11/29/21 15:22 15:20 12:10 WBC 6.04 RBC 4.69 Hgb 14.8 Hct 43.6 MCV 93 MCH 31.6 MCHC 33.9 RDW 13.2 Plt Count 193 MPV 9.2 Immature Gran % 0.3 Neutrophils % 74.8 Lymphocytes % 15.9 Monocytes % 7.5 Eosinophils % 1.2 Basophils % 0.3 Nucleated RBC % 0.0 Absolute Neutrophils 4.52 Absolute Lymphocytes 0.96 L Absolute Monocytes 0.45 Absolute Eosinophils 0.07 Absolute Basophils 0.02 Sodium Potassium Chloride Carbon Dioxide Anion Gap BUN Creatinine Estimated GFR/1.73 m2 Glucose Calcium Magnesium Total Bilirubin AST ALT Alkaline Phosphatase Troponin I < 50 Total Protein Albumin TSH COVID-19 Source Nasal/Nares SARS-CoV-2 (PCR) Negative 11/29/21 12:10 WBC RBC Hgb Hct MCV MCH MCHC RDW Plt Count MPV Immature Gran % Neutrophils % Lymphocytes % Monocytes % Eosinophils % Basophils % Nucleated RBC % Absolute Neutrophils Absolute Lymphocytes Absolute Monocytes Absolute Eosinophils Absolute Basophils Sodium 141 Potassium 4.0 Chloride 106 Carbon Dioxide 25.2 Anion Gap 9.8 BUN 17 Creatinine 0.8 Estimated GFR/1.73 m2 >= 60.00 Glucose 102 Calcium 9.3 Magnesium 2.0 Total Bilirubin 0.5 AST 15 ALT 28 Alkaline Phosphatase 70 Troponin I < 50 Total Protein 7.6 Albumin 4.3 TSH 2.47 COVID-19 Source SARS-CoV-2 (PCR) PFSH All Active Problems (Updated 11/29/21 @ 20:02 by Ryan Mayberry MD) DVT prophylaxis (Acute) Cerebrovascular accident (CVA) of right thalamus (Acute) Acute CVA (cerebrovascular accident) (Acute) Adenoma of large intestine (Acute 04/26/13) tubular adenoma 04/2013; repeat 5 yr colo- 2019- FIT testing in 5 years Essential hypertension (Acute 09/01/11) Impotence (Acute 03/31/12) Mixed hyperlipidemia (Acute 09/06/11) goal LDL<100; risk 12% calculated 02/2010 Sensorineural hearing loss, unspecified (Acute 09/06/11) Primary osteoarthritis of right hip (Chronic) Medical History Anxiety Diverticula of colon First degree AV block 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 Bruno Vertigo Surgical History Colonoscopy - IV Sedation (09/08/09) Dr Kingsley-colonoscopy to cecum,polypectomy and anoscopy w/banding of internal hemorrhoid Colonoscopy - IV Sedation (04/26/13) Dr Kingsley-colonoscopy to cecum,polypectomy and anoscopy w/banding of internal hemorrhoid H/O colonoscopy 02/27 with MAC- severe diverticulosis History of tonsillectomy S/P tendon repair left hand Toe nail issue (11/11/16) R great toe ingrown nail, Elli Family History Mother , lung cancer at age 84. Lung cancer Hypertension Hyperlipidemia Father , lung ca at age 80. Lung cancer Throat cancer Brother Heart disease Hypertension Brother Hyperlipidemia Hypertension Brother Hyperlipidemia Hypertension Son Hyperlipidemia Hypertension Son Alcohol abuse Depression Hyperlipidemia Hypertension Maternal Grandfather , age 75 Heart disease Stroke Paternal Grandfather , age 65 Colon cancer Maternal Grandmother , age 69 Lung cancer Stomach cancer Paternal Grandmother , age 79 Lung cancer Heart disease Stroke Social History Smoking/Tobacco Use Status: Former Tobacco Use tobacco type: cigarettes Quit Date: 05/12/78 Tobacco: How many years used: 15 Second Hand Exposure: Yes Smoking risk assessment performed?: Yes Alcohol Intake: current Alcohol Intake frequency: a few times a week Alcohol type: beer, wine and hard liquor Drug use: Never Substance use type: does not use Caregiver/Support person: No Household members: spouse Housing: house Number of Children: 5 Do you need help understanding health information?: Rarely current occupation: retired Pets and animals: Yes Pets and animals: cat(s) and dog(s) Sexually active: Yes Do you think of yourself as: straight/heterosexual Current gender identity: male What is your relationship status?: How often do you talk on the phone with friends or family?: three or more times per week How often do you get together with friends or relatives?: three or more times per week How often do you attend congregation or shinto services?: decline to answer Do you belong to any clubs or organized social groups?: yes Panel score (0-1 are the most socially isolated patients): 3 What type of physical activity do you participate in: walking Duration: 30-45 minutes/day Frequency: daily Alethea/Restorationist: Adventist Special alethea needs: No Seatbelt use: always Drive intox or ride w/intox auto transport driver: No Working smoke detector in home: Yes Carbon monox detector in home: Yes Do you feel safe at home: Yes Do you feel safe in your relationship?: Yes
[2021-11-30 11:27] VITALS: BP 140/80; PULSE 60; RESP 18; TEMP 35.6; O2SAT 93
== END 2021-11-30 13:48 | disposition home or self-care (01) | DRG 66 ==
LOC: ER 15:05 → MS 16:06
PROVIDERS: Admitting Provider Internal Medicine; Emergency Provider Emergency Medicine; PCP Nurse Practitioner; Visit Provider Internal Medicine
DX: I63.81 Other cerebral infarction due to occlusion or stenosis of small artery (principal); E78.2 Mixed hyperlipidemia; I10 Essential (primary) hypertension; I44.0 Atrioventricular block, first degree; M16.11 Unilateral primary osteoarthritis, right hip; M54.50 Low back pain, unspecified; Z79.82 Long term (current) use of aspirin; Z87.891 Personal history of nicotine dependence; R20.0 Anesthesia of skin
CPT/HCPCS: 36415; 70544; 70547; 80053; 87635; 93005; 93306; 97161; 99223; 99285; 70450; 70551; 83735; 84443; 84484; 85025; 93010; 99222; 99238

== ENCOUNTER 2021-11-30 12:27 | Outpatient (CLI) | payer MEDICARE, OTHER, SELFPAY ==
--- NOTE | 2022-01-04 08:42 | W.CARDEVENT ---
Date of service: 01/04/22 Time of Service: 08:42 Cardiac Event Recorder Referring Provider:: Jocelyne Harry Indications:: Stroke Cardiac Event Note: This is a 30-day cardiac event monitor.. Monitor time was 16 days Rhythm was sinus with an average heart rate of 73. Minimum was 57, maximum 113. First-degree AV block was seen intermittently Atrial premature beats were noted There was one 6 beat run of nonsustained ventricular tachycardia There was no atrial fibrillation. The episode labeled atrial fibrillation was sinus rhythm with artifact No patient symptoms were reported
== END 2021-11-30 12:28 | disposition home or self-care (01) ==
LOC: RT 12:28
PROVIDERS: PCP Nurse Practitioner; Visit Provider Nurse Practitioner
DX: I63.81 Other cerebral infarction due to occlusion or stenosis of small artery (principal)
CPT/HCPCS: 93270

== ENCOUNTER → 2021-12-31 11:17 | Outpatient (BNVA) | payer MEDICARE, OTHER, SELFPAY | PROVIDERS: PCP Nurse Practitioner; Referring Provider Nurse Practitioner; Visit Provider Psychiatry & Neurology Neurology | DX: I69.334 Monoplegia of upper limb following cerebral infarction affecting left non-dominant side (principal); I10 Essential (primary) hypertension | CPT/HCPCS: 99214 ==

== ENCOUNTER 2022-01-03 08:42 | Outpatient (CLI) | payer MEDICARE, OTHER, SELFPAY | END 2022-01-03 08:43 | LOC: CARDO 01-07 09:32 | PROVIDERS: PCP Nurse Practitioner; Referring Provider Nurse Practitioner; Visit Provider Internal Medicine Cardiovascular Disease | DX: I63.81 Other cerebral infarction due to occlusion or stenosis of small artery (principal); I49.1 Atrial premature depolarization; I47.2 Ventricular tachycardia | CPT/HCPCS: 93272 ==

== ENCOUNTER 2022-01-03 08:56 | Outpatient (CLI) | payer MEDICARE, OTHER, SELFPAY ==
--- NOTE | 2022-01-03 08:15 | DI.RAD_ITS ---
Exam(s) XR HIP RT COMPLETE AP PELVIS EXAM: XR HIP RT COMPLETE AP PELVIS CLINICAL HISTORY: RIGHT HIP OA TECHNIQUE: COMPARISON: CR RT HIP COMPLETE AP PELVIS from 06/20/2017 FINDINGS: Three views were obtained. There is mild narrowing of the cartilaginous joint spaces of both hips gomez periorly. There are moderate marginal osteophytes of the acetabulum and femoral heads bilaterally. No other significant bony abnormality seen. IMPRESSION: Moderate DJD both hips. RADIATION DOSE DELIVERED: Total DLP
== END 2022-01-03 08:57 | disposition home or self-care (01) ==
LOC: DIORS 08:57
PROVIDERS: PCP Nurse Practitioner; Referring Provider Nurse Practitioner; Visit Provider Student in an Organized Health Care Education/Training Program
DX: M16.11 Unilateral primary osteoarthritis, right hip (principal)
CPT/HCPCS: 93272; 99213; 73502

== ENCOUNTER 2022-01-07 14:19 | Outpatient (CLI) | payer MEDICARE, OTHER, SELFPAY ==
--- NOTE | 2022-01-07 13:30 | DI.RAD_ITS ---
Exam(s) XR PELVIS AP EXAM: XR PELVIS AP CLINICAL HISTORY: pre op R IVORY. TECHNIQUE: 2D digital imaging was performed. One view COMPARISON: CR XR HIP RT COMPLETE AP PELVIS from 01/03/2022 FINDINGS: BONES: No acute fracture is present. No bony destructive lesion is seen. JOINTS: No dislocation present. There are stable degenerative changes seen in the hips bilaterally. SOFT TISSUE: Atherosclerosis is present. IMPRESSION: Stable degenerative changes in the hips. DATA REPOSITORY: RADIATION DOSE DELIVERED:
== END 2022-01-07 14:20 | disposition home or self-care (01) ==
LOC: DIORS 14:20
PROVIDERS: PCP Nurse Practitioner; Referring Provider Nurse Practitioner; Visit Provider Physician Assistant
DX: M16.11 Unilateral primary osteoarthritis, right hip (principal); Z01.818 Encounter for other preprocedural examination
CPT/HCPCS: 72170

== ENCOUNTER 2022-01-10 08:30 | Emergency (ER) | payer MEDICARE, OTHER, SELFPAY ==
[2022-01-10 08:35] VITALS: BP 158/92; PULSE 67; RESP 18; TEMP 36.5; O2SAT 97
--- NOTE | 2022-01-10 09:00 | DI.RAD_ITS ---
Exam(s) XR RIBS LT W PA LAT CHEST EXAM: XR RIBS LT W PA LAT CHEST CLINICAL HISTORY: Fall with anterior rib pain. TECHNIQUE: 2D digital imaging was performed. COMPARISON: CR CHEST 2 VIEWS PA,LAT from 07/26/2016 FINDINGS: Seven views: Left rib cage-five views: No left rib fractures identified. No left rib lesions. Chest x-ray-two views: Heart size normal. Mediastinum unchanged. No infiltrates. No pleural effusi ons. No acute compression fractures evident. IMPRESSION: No acute left rib fractures identified. No significant pulmonary findings. No pneumothorax. DATA REPOSITORY: RADIATION DOSE DELIVERED:
--- NOTE | 2022-01-10 09:12 | W.ED.GENAD ---
Discharge Plan Disposition Patient Disposition: HOME Condition: Stable Discharge Details Clinical Impression: Anterior chest wall pain Primary Care Provider: Jocelyne Harry ED Provider: Mitchell Feliz Home Meds and New Rx's Prescriptions: New lidocaine 5 % adhesive patch,medicated 1 patch topical DAILY PRN (Reason: pain) Qty: 15 0RF Rx Instructions: leave on most painful area for 12 hrs Continued atorvastatin 20 mg tablet 40 mg PO QPM valsartan 320 mg tablet 320 mg PO DAILY Qty: 90 4RF acetaminophen [Tylenol] 325 mg capsule 650 mg PO TID PRN Rx Instructions: Takes 2 tabs in am, 2 tabs in afternoon and 3 tabs at bedtime celecoxib 200 mg capsule 200 mg PO DAILY Qty: 30 0RF Excedrin Extra Strength 1 EACH tablet 1 ea PO p PRN diphenhydramine-acetaminophen [Acetaminophen PM] 25-500 mg tablet 2 tab PO HS PRN amlodipine 5 mg tablet 5 mg PO DAILY Qty: 90 4RF clopidogrel [Plavix] 75 mg tablet 75 mg PO DAILY Qty: 30 3RF Discharge Instructions Instructions: Chest Wall Pain (ED) Additional Instructions: He may continue to take [id number] pain medication as needed for discomfort. If the prescribed lidocaine patches are not covered by your insurance please use [id number]-[id number] lidocaine patches as directed on packaging. If you are not seeing any signs of improvement in the next 1 to 2 weeks please follow-up with your primary care provider for reassessment or for any significant worsening of symptoms including fever chills, worsening chest pain or shortness of breath return immediately to the emergency department for reassessment. Referrals: Jocelyne Harry, [employer] [Primary Care Provider] - (As needed for reassessment) Discharge Data Discharge Date/Time-TO BE ENTERED AT DEPARTURE: 01/10/22 18:30 Medical Decision Making Patient presenting to the emergency department for chief complaint of left foot pain. Patient reports a mechanical trip and fall yesterday around 5 PM which resulted in left mid to lower leg injury. Patient does state that during the fall he slid a little bit causing a slight abrasion to his left cheek but denies any head injury, loss of consciousness, or neurological symptoms. His chief complaint is rib pain with no other associated symptoms. Physical exam shows significant tenderness at the anterior chest wall midclavicular line from approximately ribs 4 through 9. No sternal tenderness, clear lung sounds, normal cardiac, no gross neurological deficit. Did discuss with patient due to being on Plavix consideration of head CT but patient again firmly denies any head injury and states no abrasion to the cheek. At this time using shared decision-making and patient being informed of possible risk we are deferring the head CT scan and patient was encouraged to return for any new or worsening symptoms. We will plan on performing chest and rib films. Reviewed radiological imaging and radiologist interpretation which shows no signs of fracture, pneumothorax, or concerning findings. Will discharge patient on lidocaine patches and to use kfsh-gsr-ctuhzys pain medication as needed for discomfort. Return and follow-up precautions were discussed with patient. After discussion of diagnosis and plan of care patient has no further needs, questions, or concerns and states clear understanding to return to the emergency department for any worsening symptoms. This documentation was generated using [employer] dictation system, please disregard any oddities of phrase or misspellings. Imaging Data Radiologic Study: Attestation: I personally reviewed and interpreted this imaging study as follows: Imaging: X-Ray Radiologist's impression: FINDINGS: Seven views: Left rib cage-five views: No left rib fractures identified. No left rib lesions. Chest x-ray-two views: Heart size normal. Mediastinum unchanged. No infiltrates. No pleural effusions. No acute compression fractures evident. IMPRESSION: No acute left rib fractures identified. No significant pulmonary findings. No pneumothorax. HPI General Mode of arrival: ambulatory. Date/Time Provider Initiated Documentation: 01/10/22 08:39. Limitations to Documentation: no limitations. Information obtained by: patient and RN notes reviewed. History of Present Illness 71 year old M presents to the emergency department with the chief complaint of Left rib injury due to fall, described as moderate, with intensity rated at 9. Quality is described as sharp, and is localized to the chest. Patient reports no radiation. Patient started experiencing this hour(s) (16) and it has been constant. Rest improves symptom(s), Movement worsens symptoms . Patient notes no other symptoms.. Patient did receive the following treatments prior to arrival, none Related Data Home Medications Medication Instructions Recorded Confirmed [id number] 250 1 ea PO p PRN 01/30/15 01/10/22 mg-250 mg-65 mg tablet (Excedrin Extra Strength) diphenhydramine 25 2 tab PO HS PRN 05/25/19 01/10/22 mg-acetaminophen 500 mg tablet (Acetaminophen PM) amlodipine 5 mg tablet 5 mg PO DAILY #90 tabs 11/14/21 01/10/22 clopidogrel 75 mg tablet (Plavix) 75 mg PO DAILY #30 tabs 11/30/21 01/10/22 atorvastatin 20 mg tablet 40 mg PO QPM 12/04/21 01/10/22 valsartan 320 mg tablet 320 mg PO DAILY #90 tabs 12/04/21 01/10/22 acetaminophen 325 mg capsule 650 mg PO TID PRN 12/31/21 01/10/22 (Tylenol) celecoxib 200 mg capsule 200 mg PO DAILY #30 caps 01/03/22 01/10/22 lidocaine 5 % topical patch 1 patch topical DAILY PRN pain #15 01/10/22 ea Previous Rx's Medication Instructions Recorded amlodipine 5 mg tablet 5 mg PO DAILY #90 tabs 11/14/21 clopidogrel 75 mg tablet (Plavix) 75 mg PO DAILY #30 tabs 11/30/21 valsartan 320 mg tablet 320 mg PO DAILY #90 tabs 12/04/21 celecoxib 200 mg capsule 200 mg PO DAILY #30 caps 01/03/22 lidocaine 5 % topical patch 1 patch topical DAILY PRN pain #15 01/10/22 ea Allergies Allergy/AdvReac Type Severity Reaction Status Date / Time CATNIP AdvReac Intermediate NASAL Uncoded 01/10/22 08:42 CONGESTION General Stated Complaint: Chest/Rib SUMANTH: 4 Review of Systems Constitutional Constitutional: Denies chills, Denies fever(s) and Denies headache(s) Eyes Eyes: Denies change in vision ENT Ears, Nose, Mouth, and Throat: Denies vertigo, Denies dizziness, Denies facial pain, Denies headache(s) and Denies neck pain Cardiovascular Cardiovascular: Reports chest pain (Rib pain), Denies syncope and Denies dyspnea Respiratory Respiratory: Reports as per HPI, Reports pain on inspiration, Reports pain with cough and Denies dyspnea Gastrointestinal Gastrointestinal: Denies abdominal pain, Denies nausea and Denies vomiting Musculoskeletal Musculoskeletal: Denies back pain and Denies neck pain Integumentary/Breasts Skin/Breast: Denies unusual bruising Neurologic Neurologic: Denies confusion, Denies vertigo, Denies dizziness, Denies syncope and Denies headache(s) Psychiatric Psychiatric: Denies confusion Hematologic/Lymphatic Hematologic/Lymphatic: Denies easy bleeding and Denies easy bruising PFSH All Active Problems (Updated 01/10/22 @ 10:11 by Mitchell Feliz NP) Anterior chest wall pain (Acute) Cerebrovascular accident (CVA) of right thalamus (Acute) 11/2021- started plavic, baby asa d/c'd Adenoma of large intestine (Acute 04/26/13) tubular adenoma 04/2013; repeat 5 yr colo- 2019- FIT testing in 5 years Essential hypertension (Acute 09/01/11) Impotence (Acute 03/31/12) Mixed hyperlipidemia (Acute 09/06/11) goal LDL<100; risk 12% calculated 02/2010 Sensorineural hearing loss, unspecified (Acute 09/06/11) Primary osteoarthritis of right hip (Chronic) Medical History Anxiety Diverticula of colon First degree AV block 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 Bruno Vertigo Surgical History Colonoscopy - IV Sedation (09/08/09) Dr Kingsley-colonoscopy to cecum,polypectomy and anoscopy w/banding of internal hemorrhoid Colonoscopy - IV Sedation (04/26/13) Dr Kingsley-colonoscopy to cecum,polypectomy and anoscopy w/banding of internal hemorrhoid H/O colonoscopy 02/27 with MAC- severe diverticulosis History of tonsillectomy S/P tendon repair left hand Toe nail issue (11/11/16) R great toe ingrown nail, Elli Family History Mother , lung cancer at age 84. Lung cancer Hypertension Hyperlipidemia Father , lung ca at age 80. Lung cancer Throat cancer Brother Heart disease Hypertension Brother Hyperlipidemia Hypertension Brother Hyperlipidemia Hypertension Son Hyperlipidemia Hypertension Son Alcohol abuse Depression Hyperlipidemia Hypertension Maternal Grandfather , age 75 Heart disease Stroke Paternal Grandfather , age 65 Colon cancer Maternal Grandmother , age 69 Lung cancer Stomach cancer Paternal Grandmother , age 79 Lung cancer Heart disease Stroke Social History Smoking/Tobacco Use Status: Former Tobacco Use tobacco type: cigarettes Quit Date: 05/12/78 Tobacco: How many years used: 15 Second Hand Exposure: Yes Smoking risk assessment performed?: Yes Alcohol Intake: current Alcohol Intake frequency: a few times a week Alcohol type: beer, wine and hard liquor Drug use: Never Substance use type: does not use Caregiver/Support person: No Household members: spouse Housing: house Number of Children: 5 Do you need help understanding health information?: Rarely current occupation: retired Pets and animals: Yes Pets and animals: cat(s) and dog(s) Sexually active: Yes Do you think of yourself as: straight/heterosexual Current gender identity: male What is your relationship status?: How often do you talk on the phone with friends or family?: three or more times per week How often do you get together with friends or relatives?: three or more times per week How often do you attend baptist or evangelical services?: decline to answer Do you belong to any clubs or organized social groups?: yes Panel score (0-1 are the most socially isolated patients): 3 What type of physical activity do you participate in: walking Duration: 30-45 minutes/day Frequency: daily Alethea/Pentecostalism: Buddhism Special alethea needs: No Seatbelt use: always Drive intox or ride w/intox wedding transportation driver: No Working smoke detector in home: Yes Carbon monox detector in home: Yes Do you feel safe at home: Yes Do you feel safe in your relationship?: Yes Exam Const General: cooperative, no acute distress and not ill appearing Orientation: alert, awake and oriented x3 HENMT Head: atraumatic Ears: hearing grossly normal bilaterally General nose exam: external nose normal and nares normal Face and sinus: sinuses nontender and abrasion on the left maxilla Eyes General: appearance normal, both eyes and all related structures Chest Chest: normal inspection of the chest and localized rib tenderness with anteroposterior compression left mid-clavicular line involving the 4th rib, involving the 5th rib, involving the 6th rib, involving the 7th rib, involving the 8th rib and involving the 9th rib Resp Effort & Inspection: normal respiratory effort, able to speak in complete sentences and no respiratory distress Auscultation: clear to auscultation bilaterally Cardio Rate: regular rate Rhythm: regular rhythm Heart Sounds: S1 normal and S2 normal Skin General skin exam: no rashes or lesions noted Neuro General: patient alert, patient awake, patient oriented x3, gait normal, tone normal, moves all extremities, no focal motor deficits and not confused Sensory Exam: no sensory deficits noted Course Vital Signs Vital signs: Vital Signs Temperature 36.5 C 01/10/22 08:35 Pulse 67 01/10/22 08:35 Respiratory Rate 18 01/10/22 08:35 Blood Pressure 158/92 H 01/10/22 08:35 Pulse Oximetry 97 01/10/22 08:35 Temperature 36.5 C 01/10/22 08:35 Temperature Source Temporal Artery Scan 01/10/22 08:35 Pulse 67 01/10/22 08:35 Respiratory Rate 18 01/10/22 08:35 Respiratory Effort Non-Labored 01/10/22 08:39 Respiratory Depth Normal 01/10/22 08:39 Respiratory Pattern Normal 01/10/22 08:39 Blood Pressure 158/92 H 01/10/22 08:35 Blood Pressure Position Sitting 01/10/22 08:35 Pulse Oximetry 97 01/10/22 08:35 Oxygen Delivery Method Room Air 01/10/22 08:35 Oxygen Flow Rate 0 01/10/22 08:35 Pain Level 9 01/10/22 08:39 PAWSS Have you Been Recently Intoxicated or Drunk Within the Last 30 days?: No Have you Ever Experienced Previous Episodes of Alcohol Withdrawal?: No Have you ever Experienced Withdrawal Seizures?: No Have you ever Experienced Delirium Tremens(DT)s?: No Have you ever undergone Alcohol Rehabilitation Treatment (i.e, inpt ot outpatient treatment programs)?: No Have you ever Experienced Blackouts?: No Have you ever Combined Alcohol with other Downers within the last 90 days?: No Have you ever Combined Alcohol with any other Substance of Abuse during the last 90 days?: No Positive Blood Alcohol level on Presentation? [PCS.BAL]: No Evidence of Increased Autonomic Activity (i.e. HR>120, tremor, sweating, agitation, nausea)?: No Result: 0
[2022-01-10] MEDS: Acetaminophen 325 MG TAB 650 MG PO (09:42)
[2022-01-10] MEDS: Lidocaine 5% Patch 1 PATCH TP (09:43)
== END 2022-01-10 18:30 | disposition home or self-care (01) ==
PROVIDERS: Emergency Provider Nurse Practitioner Family; PCP Nurse Practitioner
DX: R07.9 Chest pain, unspecified (principal); S89.92XA Unspecified injury of left lower leg, initial encounter; W01.0XXA Fall on same level from slipping, tripping and stumbling without subsequent striking against object, initial encounter; S00.81XA Abrasion of other part of head, initial encounter; Z87.891 Personal history of nicotine dependence
CPT/HCPCS: 99284; 71046; 71100

== ENCOUNTER 2022-04-11 03:54 | Outpatient (CLI) | payer MEDICARE, OTHER, SELFPAY ==
[2022-04-11 09:14] LABS: Calculated LDL 102 mg/dL (<100); Cholesterol 231 mg/dL (<200); HDL Cholesterol 116 mg/dL (40-60); Triglyceride 69 mg/dL (<150)
[2022-04-11 09:29] LABS: Hemoglobin A1C 5.3 % (<5.7)
== END 2022-04-11 03:55 | disposition home or self-care (01) ==
LOC: LBO 03:54
PROVIDERS: Nurse Practitioner; PCP Family Medicine; Visit Provider Psychiatry & Neurology Neurology
DX: E78.2 Mixed hyperlipidemia (principal); R73.9 Hyperglycemia, unspecified
CPT/HCPCS: 36415; 80061; 83036

== ENCOUNTER → 2022-06-03 07:56 | Outpatient (BNVA) | payer MEDICARE, OTHER, SELFPAY | PROVIDERS: PCP Family Medicine; Referring Provider Nurse Practitioner; Visit Provider Student in an Organized Health Care Education/Training Program | DX: M16.11 Unilateral primary osteoarthritis, right hip (principal) | CPT/HCPCS: 99213 ==

== ENCOUNTER 2022-07-25 01:43 | Outpatient (CLI) | payer MEDICARE, SELFPAY ==
[2022-07-25 14:06] LABS: HGB 14.5 g/dL (13.5-17.5); MCH 31.4 pg (27.0-33.0); MCV 95 fL (80-95); MPV 8.9 fL (8.0-11.0); Platelet Count 206 10^3/uL (130-400); RBC 4.62 10^6/uL (4.36-5.78); RDW 13.5 % (11.8-14.1); RDW-SD 47.9 fL; WBC 6.12 10^3/uL (4.4-10.8)
[2022-07-25 14:54] LABS: BUN 19 mg/dL (7-18); CREATININE 1.1 mg/dL (0.70-1.30); Calcium 9.1 mg/dL (8.5-10.1); Chloride 106 mmol/L (98-107); Estimated GFR 70.88 (mL/min/1.73m2); Glucose 94 mg/dL (74-106); Potassium 3.9 mmol/L (3.5-5.1); Sodium 142 mmol/L (136-145)
== END 2022-07-25 01:44 | disposition home or self-care (01) ==
LOC: LBO 01:44
PROVIDERS: PCP Family Medicine; Visit Provider Student in an Organized Health Care Education/Training Program
DX: M16.11 Unilateral primary osteoarthritis, right hip; Z01.818 Encounter for other preprocedural examination; Z01.812 Encounter for preprocedural laboratory examination
CPT/HCPCS: 36415; 80048; 85027

== ENCOUNTER 2022-07-30 06:02 | Day surgery (SDC) | payer MEDICARE, OTHER, SELFPAY ==
--- NOTE | 2022-07-29 19:14 | W.ANESPRE ---
General Info Date of Service Date Performed: 07/30/22 Height: 5 ft 10 in Weight: 87.997 kg Body Mass Index (BMI): 27.8 Surgical Procedure: Operation Date: 07/30/22 07:50 Proposed Procedure Side Surgeon p Hip Total Hip Anterior Right Timothy Felix MD Meds Allergies and Home Medications Allergies Allergy/AdvReac Type Severity Reaction Status Date / Time CATNIP AdvReac Intermediate NASAL Uncoded 07/30/22 06:13 CONGESTION Home Medication Medication Instructions Recorded [id number] 250 1 ea PO p PRN 01/30/15 mg-250 mg-65 mg tablet (Excedrin Extra Strength) diphenhydramine 25 2 tab PO HS PRN 05/25/19 mg-acetaminophen 500 mg tablet (Acetaminophen PM) acetaminophen 325 mg capsule 650 mg PO TID PRN 12/31/21 (Tylenol) amlodipine 5 mg tablet 5 mg PO DAILY #90 tabs 06/26/22 atorvastatin 40 mg tablet 40 mg PO QPM #90 tabs 06/26/22 celecoxib 200 mg capsule 200 mg PO DAILY #90 caps 06/26/22 clopidogrel 75 mg tablet (Plavix) 75 mg PO DAILY #90 tabs 06/26/22 valsartan 320 mg tablet 320 mg PO DAILY #90 tabs 06/26/22 Current Visit Medications: Current Medications Generic Name Dose Route Start Last Admin Trade Name Freq PRN Reason Stop Dose Admin Acetaminophen 1,000 mg 07/30/22 06:00 Acetaminophen 500 Mg Tab PO 07/30/22 16:00 PREOP DYANA Celecoxib 400 mg 07/30/22 06:00 Celecoxib 200 Mg Cap PO 07/30/22 16:00 PREOP DYANA Tranexamic Acid 1,000 mg/ 60 mls @ 360 mls/hr 07/30/22 06:00 Sodium Chloride IV 07/30/22 16:00 PREOP DYANA Ringer's Solution 1,000 mls @ 80 mls/hr 07/30/22 06:00 IV 08/28/22 23:59 INFUSION DYANA Cefazolin Sodium/Dextrose 2 gm in 50 mls @ 100 mls/hr 07/30/22 06:00 Ancef Duplex IVPB 08/28/22 23:59 PREOP DYANA IV Miscellaneous Supplies 1 each 07/30/22 06:00 Iv Access IV 04/19/23 23:59 DIRECTED DYANA Sodium Chloride 0 ml 07/30/22 06:00 Normal Saline Flush 10 Ml Syr IV 08/28/22 23:59 PRN PRN Sodium Chloride 0 ml 07/30/22 06:00 Normal Saline 10 Ml Vial IJ 08/28/22 23:59 DIRECTED PRN Sterile Water 0 ml 07/30/22 06:00 Water,Injection,Sterile 10 Ml Vial IJ 08/28/22 23:59 DIRECTED PRN PFSH Active Problems Active Problems: Problem Status Onset Code Essential hypertension 09/01/11 I10 Impotence 03/31/12 N52.9 Mixed hyperlipidemia 09/06/11 E78.2 Sensorineural hearing loss, unspecified 09/06/11 H90.5 Primary osteoarthritis of right hip M16.11 Cerebrovascular accident (CVA) of right thalamus I63.81 Heavy alcohol use F10.90 Medical History Medical History (Updated 07/30/22 @ 06:35 by Karina Perkins) Adenoma of large intestine (04/26/13) tubular adenoma 04/2013; repeat 5 yr colo- 2019- FIT testing in 5 years 2019 - normal, no further colonoscopies. 2021 - negative cologuard. 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 Bruno , pt states on his back Surgical History Surgical History H/O colonoscopy 02/27 with MAC- severe diverticulosis History of tonsillectomy S/P tendon repair left hand Toe nail issue (11/11/16) R great toe ingrown nail, Elli Tobacco Smoking/Tobacco Use Status: Former Tobacco Use Passive smoking exposure: Yes Second hand exposure: Yes Alcohol Alcohol Intake: current Alcohol intake frequency: a few times a week Alcohol type: beer, wine and hard liquor Substance Use Substance use: Never Substance use type: does not use Vital Signs and Lab Results Vital Signs Most Recent Vital Signs in EMR: Temp Pulse Resp BP Pulse Ox 36.5 C 61 18 138/85 98 07/30/22 06:28 07/30/22 06:28 07/30/22 06:28 07/30/22 06:28 07/30/22 06:28 Lab Results Blood Type / Crossmatch: No Data to Display Complete Blood Count: White Blood Count 6.12 10^3/uL (4.4-10.8) 07/25/22 14:02 Red Blood Count 4.62 10^6/uL (4.36-5.78) 07/25/22 14:02 Hemoglobin 14.5 g/dL (13.5-17.5) 07/25/22 14:02 Hematocrit 44.0 % (40.0-50.0) 07/25/22 14:02 Platelet Count 206 10^3/uL (130-400) 07/25/22 14:02 Complete Metabolic Panel: Sodium 142 mmol/L (136-145) 07/25/22 14:02 Potassium 3.9 mmol/L (3.5-5.1) 07/25/22 14:02 Chloride 106 mmol/L (98-107) 07/25/22 14:02 Carbon Dioxide 28.0 mmol/L (21.0-32.0) 07/25/22 14:02 BUN 19 mg/dL (7-18) H 07/25/22 14:02 Creatinine 1.1 mg/dL (0.70-1.30) 07/25/22 14:02 Est GFR (CKD-EPI 2020) 70.88 (mL/min/1.73m2) 07/25/22 14:02 Calcium 9.1 mg/dL (8.5-10.1) 07/25/22 14:02 Glucose 94 mg/dL (74-106) 07/25/22 14:02 Liver Function Panel: No Data to Display Coagulation Panel: No Data to Display Cardiac Panel: No Data to Display Arterial Blood Gas: No Data to Display Venous Blood Gas: No Data to Display Pancreas Panel: No Data to Display Thyroid Panel: No Data to Display Infectious Disease: No Data to Display Blood Cultures: No Data to Display Toxicology Panel: No Data to Display Imaging and Studies Imaging and Studies Study information below may be from another EMR and interpreted by another provider. Please see original notes in EMR for more complete details. EKG Summary: 11/30: sinus rhythm. Echocardiogram Summary: 11/30: LVEF 55-60%, no sig valve issues. CT Summary: 11/30: no hemodynamically significant stenosis, patent vertebrals. Pulmonary Function Summary: 07/26: mild obstructive dz, no sig bronchodilator response. Anesthesia Assessment and Plan Anesthesia History Personal History: No History of Anesthesia Complications Family History: No Family History of Anesthesia Complications Exercise Tolerance Exercise Tolerance: Metabolic Equivalents>4 Cardiac & Pulmonary Exam Cardiac Exam: Normal S1/S2 Heart Sounds Pulmonary Exam: Clear Bilateral Breath Sounds Implantable Cardiac Device Does patient have a Pacemaker or an ICD?: No Airway Exam Known Difficult Airway: No Mallampati Class: 2 Mouth Opening: Normal (> 3cm) Thyromental Distance: Greater than 3 cm Neck Range of Motion: Full ROM Neck Circumference: Normal Teeth Condition: Normal Dentition and Removable Dentures/Plates Upper ASA Classification ASA Score: ASA 3 Emergency Case?: No NPO Status NPO Status: NPO Clears >2 hours, Solids >8 hours Anesthesia Plan Resuscitation Status: Full Code Anesthesia Technique: Spinal Anesthesia Airway Planned: Natural Airway Monitors Used: Standard Monitors Preoperative Comments:: 72 yo male for IVORY. Sig PMHx: HTN (amlodipine, valsartan), CVA (11/30 left face and hand numbness, right thalamus, plavix - none for 7 days, no residual), former tobacco, occ EtOH.
[2022-07-30] VITALS (11 sets, daily range): BP systolic 101–138; BP diastolic 58–85; PULSE 49–68; RESP 13–21; TEMP 36–36.5; O2SAT 95–98; BMI 27.8
[2022-07-30] MEDS: Acetaminophen 500 MG TAB 1000 MG PO (06:40)
[2022-07-30] MEDS: Celecoxib 200 MG CAP 400 MG PO (06:40)
[2022-07-30] MEDS: Lactated Ringers 1,000 ML 80 ML IV (07:00)
--- NOTE | 2022-07-30 07:17 | DSE_ITS ---
Date of service: 07/30/22 Time of Service: 12:33 DS: Diagnosis Discharge Diagnosis (1) Primary osteoarthritis of right hip: Status: Chronic Discharge Plan Disposition Patient Disposition: Home Condition: Good Discharge Details Reason For Visit: Right hip DJD Attending Provider: Timothy Felix Primary Care Provider: Shelley Geroge Home Meds and New Rx's Prescriptions: New celecoxib [Celebrex] 200 mg capsule 200 mg PO BID PRNQty: 60 0RF Rx Instructions: Take one tablet twice daily for pain and inflammation acetaminophen 500 mg tablet 1,000 mg PO Q8H PRN Qty: 90 0RF Rx Instructions: Take two tablets up to every 8 hours as needed for pain pantoprazole 40 mg tablet,delayed release (DR/EC) 40 mg PO DAILY 14 Days Qty: 14 0RF dexamethasone 4 mg tablet 4 mg PO DAILY Qty: 2 0RF Rx Instructions: Take one tablet once daily for two days docusate sodium [Colace] 100 mg capsule 100 mg PO BID Qty: 30 0RF oxycodone 5 mg tablet 5 mg PO Q6H PRN (Reason: severe post-operative pain) Qty: 12 0RF Rx Instructions: Take one tablet up to every 6 hours as needed for severe pain Continued Excedrin Extra Strength 1 EACH tablet 1 ea PO p PRN diphenhydramine-acetaminophen [Acetaminophen PM] 25-500 mg tablet 2 tab PO HS PRN amlodipine 5 mg tablet 5 mg PO DAILY Qty: 90 4RF atorvastatin 40 mg tablet 40 mg PO QPM Qty: 90 3RF clopidogrel [Plavix] 75 mg tablet 75 mg PO DAILY Qty: 90 3RF valsartan 320 mg tablet 320 mg PO DAILY Qty: 90 4RF Discontinued acetaminophen [Tylenol] 325 mg capsule 650 mg PO TID PRN Rx Instructions: Takes 2 tabs in am, 2 tabs in afternoon and 3 tabs at bedtime celecoxib 200 mg capsule 200 mg PO DAILY Qty: 90 2RF Discharge Instructions Additional Instructions: Total Hip Discharge Instructions Activity: The most important activity is to walk. You should try to take short walks a few times a day. You have no restrictions on movement or positioning, but do not try to force what you do. You will find some stiffness and weakness with hip flexion (lifting your knee). Do not try to strengthen this too early, continue to practice walking and stairs and this will come. - Outpatient physical therapy can be helpful to help return you to a normal gait and improve your flexibility and strength. This can start around 2 weeks. For some patients, it?s not necessary. Usually this is determined at the time of discharge or at the first post-operative visit. - You should wear the MT hose on both legs for 2 weeks. Dressing: Keep the surgical dressing in place for at least one week. After the first week it may be removed and replace with light gauze and tape or nothing. It may get wet after 3 days but avoid soaking the dressing. If it gets wet, just lightly pat dry. It is important to always keep some gauze between skin folds, especially when you are sitting. Spend some time with the wound exposed when you are lying flat as the incision does wrinkle onto itself. Medications: - You should take Tylenol and an anti-inflammatory Celebrex as your primary pain control medications. If the Celebrex is too expensive or not covered, please call the office for another alternative (Advil/Ibuprofen or Naproxen/Aleve). - You have been prescribed a stronger pain medication Oxycodone for breakthrough pain, take as needed as prescribed. - You have also been prescribed a stomach acid reduction agent Pantoprozole to help reduce stomach acid and reflux. - You have also been prescribed Decadron to help with post-operative nausea and pain. You will take this for two days starting tomorrow. - You will be taking your baseline clopidogel for anticoagulation and to help with DVT prevention. - If you have constipation you should take Colace (which has been prescribed) or Miralax (which is available [id number]). It takes most people 3-4 days to have a bowel movement. Follow-up: 2 weeks If you have any acute concerns or questions, please do not hesitate to contact the office at [phone]. You may contact Dr. Felix with any questions after hours through the hospital at [phone] or on his cell phone at [phone]. Stand Alone Forms: Anesthesia Discharge InstDeloris, Dav Sifuentes (U) Referrals: Timothy Felix MD [ [facility] STAFF PHYSICIAN] - 08/12/22 9:00 am (August 12, 2022 at 0900 ) Equipment/Supplies: Walker Activity:: Elevate Remove Dressings/Wound Care:: Do Not Remove Shower/Bathe:: Cover Diet:: As Tolerated Discharge Orders Discharge Orders: Discharge Order (Routine); Ordered 07/30/22 Ordered By: Timothy Felix DS: Summary Time Spent with Patient providing and/or coordinating discharge services: Less than 30 minutes Status at Discharge Functional status at discharge: uses cane/walker Overall status at discharge: patient is progressing back to baseline Mental Status: mental status grossly normal Speech and Movement: speech and movement normal Mood: congruent mood Affect: normal affect Exam Psych Mental Status: mental status grossly normal Speech and Movement: speech and movement normal Mood: congruent mood Affect: normal affect DS: Data Vitals/I&O Vitals and I&O: Vital Signs Temperature 97.7 F 07/30/22 06:28 Pulse 61 07/30/22 06:28 Pulse Rhythm Regular 07/30/22 06:28 Respiratory Rate 18 07/30/22 06:28 Respiratory Depth Normal 07/30/22 06:28 Blood Pressure 138/85 07/30/22 06:28 Pulse Oximetry 98 07/30/22 06:28 Oxygen Delivery Method Room Air 07/30/22 06:28 Oxygen Flow Rate 0 07/30/22 06:28 Pain Level 0 07/30/22 06:28 Intake & Output 07/29/22 07/29/22 07/30/22 11:59 23:59 11:59 Weight 194 lb 0.003 oz 194 lb 0.003 oz 187 lb 13.341 oz PFSH All Active Problems Essential hypertension (Acute 09/01/11) Impotence (Acute 03/31/12) Mixed hyperlipidemia (Acute 09/06/11) goal LDL<100; risk 12% calculated 02/2010 Sensorineural hearing loss, unspecified (Acute 09/06/11) Primary osteoarthritis of right hip (Chronic) Cerebrovascular accident (CVA) of right thalamus (Acute) 11/2021- started plavix, baby asa d/c'd Heavy alcohol use (Acute) Medical History (Updated 07/30/22 @ 06:35 by Karina Perkins) Adenoma of large intestine (04/26/13) tubular adenoma 04/2013; repeat 5 yr colo- 2019- FIT testing in 5 years 2018 - normal, no further colonoscopies. 2021 - negative cologuard. 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 Bruno , pt states on his back Surgical History H/O colonoscopy 02/27 with MAC- severe diverticulosis History of tonsillectomy S/P tendon repair left hand Toe nail issue (11/11/16) R great toe ingrown nail, Elli Family History Mother , lung cancer at age 84. Lung cancer Hypertension Hyperlipidemia Father , lung ca at age 80. Lung cancer Throat cancer Brother Heart disease Hypertension Brother Hyperlipidemia Hypertension Brother Hyperlipidemia Hypertension Son Hyperlipidemia Hypertension Son Alcohol abuse Depression Hyperlipidemia Hypertension Maternal Grandfather , age 75 Heart disease Stroke Paternal Grandfather , age 65 Colon cancer Maternal Grandmother , age 69 Lung cancer Stomach cancer Paternal Grandmother , age 79 Lung cancer Heart disease Stroke Social History (Updated 06/24/22 @ 14:05 by Dary Goldberg) Smoking/Tobacco Use Status: Former Tobacco Use tobacco type: cigarettes Quit Date: 05/12/78 Pack-years: 20 Tobacco: How many years used: 20 Second Hand Exposure: Yes Smoking risk assessment performed?: Yes Alcohol Intake: current Alcohol Intake frequency: a few times a week Alcohol type: beer, wine and hard liquor Drug use: Never Substance use type: does not use Details: alcohol: t-7, was on vacation Caregiver/Support person: No Household members: spouse Housing: house Number of Children: 5 number of grandchildren: 5 Communication Needs: None Education Level: college Details: BS Civil engineering Do you need help understanding health information?: Rarely 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 Pets and animals: Yes Pets and animals: cat(s) and dog(s) Sexually active: Yes Do you think of yourself as: straight/heterosexual Current gender identity: male What is your relationship status?: How often do you talk on the phone with friends or family?: three or more times per week How often do you get together with friends or relatives?: three or more times per week How often do you attend sabianism or sikhism services?: 1-3 times per year Do you belong to any clubs or organized social groups?: yes Panel score (0-1 are the most socially isolated patients): 3 What type of physical activity do you participate in: walking Duration: 30-45 minutes/day Frequency: daily Alethea/Christian: None Special alethea needs: No Seatbelt use: always Drive intox or ride w/intox truck driver instructor: No Working smoke detector in home: Yes Carbon monox detector in home: Yes Do you feel safe at home: Yes Do you feel safe in your relationship?: Yes Time Spent with Patient Time Spent with Patient: <45 minutes Time was spent: obtaining and/or reviewing separately otained hiistory, ordering medications,tests, procedures and counseling the patient
[2022-07-30] MEDS: ceFAZolin 2 GM/50 ML BAG IVPB (07:57)
--- NOTE | 2022-07-30 08:59 | DI.RAD_ITS ---
Exam(s) XR HIP RT IN OR EXAM: XR HIP RT IN OR CLINICAL HISTORY: total hip TECHNIQUE: 2D and realtime digital imaging was performed. CONTRAST MATERIAL: Refer to procedure report. COMPARISON: CR XR PELVIS AP from 01/07/2022 FINDINGS: Fluoroscopy was provided for Dr. Felix during the performance of a right hip arthroplasty. Sebastian schmitt refer to the procedure report for complete details. Ka,r=3.17 mGy IMPRESSION: RADIATION DOSE DELIVERED:
--- NOTE | 2022-07-30 09:45 | W.ANESPOSTOP ---
Postoperative Evaluation Date, Time and Location Date Performed: 07/30/22 Time Performed: 09:45 Patient Location: PACU Vital Signs Most Recent Imported Vital Signs: Most Recent Vital Signs Temp Pulse Resp BP Pulse Ox 36.3 C L 49 L 21 118/69 95 07/30/22 09:32 07/30/22 09:32 07/30/22 09:32 07/30/22 09:32 07/30/22 09:32 Pain Score Most Recent Pain Score: Most Recent Pain Score Pain Level 0 07/30/22 09:32 Assessment Mental Status: Awake (Alert & Oriented to Patient Baseline) Airway and Respiratory Function: Patent airway with normal (patient baseline) respiratory exam Cardiovascular Function: Hemodynamically Stable Hydration Status: Adequately Hydrated Nausea & Vomiting: No Nausea or Vomiting Pain: Pain is tolerable per patient (spinal still waning. ) Peripheral Nerve Block: Patient did not receive a nerve block
[2022-07-30] MEDS: HYDROmorphone 2 MG/ML SYR IVP ×2 (09:53→10:05)
[2022-07-30] MEDS: Normal Saline 10 ML VIAL IJ (09:53)
[2022-07-30] MEDS: oxyCODONE 5 MG TAB PO (10:56)
--- NOTE | 2022-07-30 13:05 | PT.INIE ---
Date of service: 07/30/22 Time of Service: 11:31 PT Notes Visit Reasons: Right hip DJD Physical Therapy Day Surgery Initial Evaluation Date: 07/30/2022 Referring Doctor: JOCELYN Bonilla PT Orders: PT CONSULT: S/p Ortho surgery Precautions: WBAT on the right LE with AD. Patient Profile/Admitting Diagnosis: Martell is a 72-year-old male with degenerative joint disease of the right hip and is status post right total knee arthroplasty on postoperative day 0. PMHX: Medical History?(Updated 05/03/22 @ 07:56 by Shelley George MD) Adenoma of large intestine (04/26/13) tubular adenoma 04/2013; repeat 5 yr colo- 2018- FIT testing in 5 years 2018 - normal, no further colonoscopies. 2021 - negative cologuard. 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 Bruno Surgical History?(Updated 05/03/22 @ 07:56 by Shelley George MD) H/O colonoscopy 02/27 with MAC- severe diverticulosis History of tonsillectomy S/P tendon repair left hand Toe nail issue (11/11/16) R great toe ingrown nail, Elli Social History/Home Situation: Independent with all aspects of ADLs prior to surgery. Equipment Owned/DME: [facility] Subjective: Reports mild lightheadedness upon sitting up at edge of bed. Denies headache and chest pain. No pain reported in the right hip. Objective: General Observation: Supine in bed. Mepilex Ag over surgical incision. TEDs to B legs. Mental Status: Alert and oriented x4 Pain: 0/10 in the right hip ROM: Right Lower Extremity: Hip flexion WFL. Hip abduction WFL. Knee flexion WFL. Ankle dorsiflexion WFL. Ankle plantarflexion WFL. Left Lower Extremity: Hip flexion WFL. Hip abduction WFL. Knee flexion WFL. Ankle dorsiflexion WFL. Ankle plantarflexion WFL. Strength: Right Lower Extremity: Hip flexors 4/5. Hip abductors 4/5. Knee flexors 5/5. Knee extensors 4/5. Ankle dorsiflexors 5/5. Ankle plantarflexors 5/5. Left Lower Extremity:Hip flexors 5/5. Hip abductors 5/5. Knee flexors 5/5. Knee extensors 5/5. Ankle dorsiflexors 5/5. Ankle plantarflexors 5/5. Sensation: Intact as to pain and light touch in bilateral lower extremities Bed Mobility/Transfers: Supine to sit standby assist Sit to stand contact-guard assist Stand to sit standby assist Bed to chair standby assist Gait: 150 feet of level surface ambulation using front wheeled walker with step through gait pattern requiring standby assist. Denies worsening of lightheadedness. No report of pain in the right hip. No loss of balance. No shortness of breath. Nurse Ibeth providing wheelchair follow for safety. Stairs: Up and down 6 x 4 inch steps and 4 x 6 inch steps while holding onto bilateral rails with step to gait pattern requiring standby assist. Balance: Static Sitting: Normal Dynamic Sitting: Normal Static Standing: Fair Dynamic Standing: Fair Special Tests: Mobility Limitations Standardized Measure [facility] 6 clicks Basic Mobility Inpatient Short Form: Raw Score: 22 CMS Score: 21%deficit Informed Consent/Education: Patient instructed in purpose of PT consult. Packet containing IVORY exercise protocol has been given to patient. Education and training on initial set of exercises that can be done at home have been completed with patient and his . Assessment: Patient requires the use of a front wheel walker for all mobility ADL performance to maximize independence and reduce fall risk. Patient presents with clinical signs and symptoms consistent with current/admitting diagnoses that have resulted to mobility limitations, gait instability, generalized weakness, and impairment of motor control as demonstrated by the following impairment level findings: 1. Decreased strength to right hip major muscle groups 2. Impaired standing balance Impairments are contributing to the following functional limitations: 1. Inability to safely ambulate without assistive device 2. Increase completion time for mobility ADL performance 3. Increased fall risk Patient is assessed as a [id number] moderate complexity based on the following: History: 72-year-old male with impairment level findings, functional limitations, and past medical history as indicated above Examination: Demonstrable impairment in strength, balance, and mobility level with underlying impairments and functional limitations as documented above Presentation: Evolving Decision Makin moderate complexity Goals: N/A. PT evaluation and 1-2 treatment sessions only for functional mobility training using recommended AD and for HEP instruction. Plan of Care/Treatment Plan: N/A. PT evaluation and 1-2 treatment session only for functional mobility training using recommended AD and for HEP instruction. DISCHARGE RECOMMENDATIONS: Home when medically cleared by orthopedic surgeon. Recommend outpatient PT services to optimize functional mobility outcomes and facilitate return to independent community ambulation without an assistive device. TREATMENT CODE/TIME: 31538 x 20 minutes, 37522 x 18 minutes beginning at 11:31 AM. Thank you for the opportunity to participate in the care of this patient. Clarissa Gallagher PT, DPT, CLT [facility] [place], [place]
--- NOTE | 2022-07-30 16:05 | W.PM.OP ---
Date of service: 07/30/22 Time of Service: 09:20 Operative Note Operative Note DATE OF PROCEDURE: 07/30/22 PRE-OP DIAGNOSIS: Hip Osteoarthritis POST-OP DIAGNOSIS: same PROCEDURE: Right Anterior Total Hip Arthroplasty with Intraoperative Navigation SURGEON: Timothy Felix RECORDS MANAGEMENT ANALYST: Antonieta Verde ANESTHESIA TYPE: Spinal Refer to Anesthesia Record PATHOLOGY: none sent TOURNIQUET TIME: 0 COMPLICATIONS: None Patient was transported to: PACU Patient's condition: stable Implants: 1. Depuy [place] Acetabular Component, 58mm 2. Depuy Acetabular Liner, [id number] 3. Depuy Actis Standard Collared Femoral Stem, Size 8 4. Depuy Altrx Ceramic Femoral Head, Size 36+1.5mm Indications: I have seen Martell in clinic for symptoms of hip arthritis, confirmed with radiographic findings. He has exhausted nonoperative methods and was having significant limitations in daily function and desired better function and less pain. I discussed the technical details of a hip replacement. I explained the risks of the procedure to include, but not limited to, bleeding, infection, pain, stiffness, fracture, damage to nerves and vessels, damage to muscles and tendons, loosening, instability, leg length inequality, need for repeat procedure, blood clot and cardiopulmonary demise. Despite these risks, Martell elected to proceed. Findings: There was significant signs of arthritis throughout the hip. Procedure Description: Martell was greeted in the preoperative holding area where the correct side was identified and marked. The consent was reviewed with the patient and signed. The history and physical was updated. All questions were answered. He was taken back to the operating room. A spinal anesthestic was then administered. The feet were wrapped with cast padding and Coban and then placed into the boot liners and then into the boots. Care was taken to protect the skin and make sure the heels were fully down and the boots were stable. The patient was then positioned onto the HANA table. Both legs were held in a neutral position. SCDs were applied. The patient was then slid down onto a peroneal post. Prophylactic antibiotics in the form of Cefazolin were administered. 1g of Tranxemic Acid was given intravenously within 30 minutes of incision. The right leg was then prepped with Chloraprep and draped in a standard fashion. A second prep with Chloraprep was performed prior to placement of a shower-curtain type drape with Iodine impregnated skin protection. A timeout to confirm correct identity, side and site, procedure, allergies, anesthesia, and medical concerns was performed. An obliquely oriented incision was made starting lateral to the ASIS and running distal over the Tensor Fascia Jenny (TFL) muscle belly toward the fibular head, approximately 10cm. The skin and soft tissue was dissected sharply, through Deepthi?s fascia, and to the fascia of the TFL. With the fascia and superior border of the IT band identified, the fascia was incised with a new knife just above any perforators from the IT band. The TFL muscle belly was bluntly dissected away from the fascia and moved laterally. The fat between TFL and rectus was identified to ensure the dissection was not within the TFL. Blunt dissection created space between abductors and the capsule and retractor was placed over the lateral femoral neck. The fibers of the rectus femoris tendon were identified and these were freed from the anterior capsule. A second cobra retractor was placed around the medial femoral neck. The TFL was further retracted laterally to show the deep fascia. Careful dissection through this layer identified three main crossing vessels of the lateral femoral circumflex. These were cauterized in multiple locations and then cut without any noticeable bleeding. The TFL was further released bluntly from the deep fascia to expose anterior hip capsule and fat The Jose orthopaedic retractor was then placed beneath the TFL and against sartorius and medial soft tissues to protect and retract the soft tissues. A T-capsulotomy was then performed starting at the superior lateral acetabulum and moving distally to the intertrochanteric ridge. These capsular flaps were tagged with a No. 1 Ethibond and elevated from within. The capsular flaps were released to the shoulder of the lateral neck and to the lesser trochanter to give excellent visualization of the proximal femur. A neck osteotomy was performed using an oscillating saw based on preoperative templates. This cut started in the shoulder and of the lateral neck and exited medially. The saw was at all times directed medially to avoid injury to the greater trochanter. Gross traction was applied to the leg and the osteotomy opened. The femoral head was removed with a corkscrew, making sure to protect the TFL on its exit. Traction was released after head removal. This was measured on the back table to determine the starting reamer size. Portions of the rectus obscuring visualization were minimally elevated off the superior acetabulum. An anterior retractor was placed over the anterior wall between capsule and labrum and attached to the Gripper retraction system. The femur was rotated to 90 degrees and medial capsule was fully released until the lesser trochanter was palpable and visible; the femur was returned to 30 degrees. A posterior retractor was placed similarly between capsule and labrum. This provided excellent visualization. The contents of the cotyloid fossa were removed with electrocautery and the labrum was removed with a knife. There was a notable floor osteophyte. There was significant chondromalacia of the superior acetabulum. Acetabular reaming began with a 54mm reamer. This first reaming was directed anterior to posterior and medial to get down to the true floor. This was inspected and reamed until the true floor was reached. The anterior retractor was then released and entry and exit was provided by traction on the capsular flaps. I then reamed sequentially up to a 58mm reamer where good fit was obtained. The larger reamers were oriented based on anatomical reference of the anterior and lateral calderon to ensure proper abduction and anteversion. Positioning and size was confirmed with the fluoroscopy. A 58mm Depuy [place] acetabular component was selected. The deep tissues were irrigated. The acetabular component was then impacted in a position of about 40-45 degrees of abduction and 15-20 degrees of anteversion, using the patient?s anatomy as the ultimate landmark. Fluoroscopy was used to confirm this along with intraoperative navigation, [employer]. There was excellent senior analyst market intelligence of the acetabular component and the inserting handle was removed. The acetabular liner, Depuy [id number] polyethylene liner, was inserted and lined up with the tines of the acetabular component. There was no soft tissue interposition. The liner was then impacted into position and confirmed to be well-seated. A portion of the parish-articular cocktail was then injected around the acetabulum into the capsule and periosteum. This cocktail consisted of 123mg of Ropivacaine, 0.25mg of Epinephrine, 0.04mg of Clonidine, and 15mg of Ketorolac, diluted to 50cc. The leg was rotated to 120 degrees. Any remaining medial capsule was released until the lesser trochanter was easily palpable. A retractor was placed medially. The lateral capsule was further released into the shoulder to allow access to the greater trochanter. A Person retractor was placed over the greater trochanter which allowed the trochanter to flip in front of the capsule for excellent exposure. The leg was brought down into maximal extension and 20 degrees of adduction while ensuring there was no impingement on the acetabulum. Any remnant capsule within the trochanter was released. Piriformis and obturator externis were identified and protected. There was excellent access to the proximal femur. The lateral neck remnant was removed with a rongeur. A blunt canal probe was used to identify the canal and trajectory for later broaching. A box osteotome initiated the broach course. A small curved rasp and a curved curette were used to work laterally. Broaching then began with a starter Actis broach. This was inserted manually around the trochanter and into the canal before mallet blows. The broach was seated to the neck cut level based on the neck cut and the preoperative template. Sequential broaching was continued with the Cognection pneumatic broaching device until a tight fit was obtained with good rotational control of the femur. A trial standard neck was inserted along with a +5 trial head. The leg was brought out of extension and adduction and then reduced with traction and internal rotation. The leg was stable anteriorly in a position of 30 degrees of extension and 90 degrees of external rotation. Fluoroscopy was used to ensure there was no fracture and the stem was seated well. Leg lengths were checked with an AP pelvis and pelvic reference points. vBrand navigation system was used to confirm appropriate positioning and leg length and offset. Once content with the desired offset and leg lengths, the leg was brought back into extension, external rotation and adduction. The periosteum and surrounding tissue was injected with remaining portion of the parish-articular cocktail. The proximal femur was irrigated as well as the deep tissues. The [employer] Correlixis standard collared stem, size 8, was then manually inserted into the proximal femur making sure to control rotation. It was then malleted into position with light blows, giving breaks to allow bone expansion and decrease risk of fracture. The selected Depuy Altrx Ceramic Head, size 36+1.5mm, was then placed onto the clean and dry trunnion and secured with impaction onto the tapered fit. The leg was brought back out of extension and adduction and reduced with traction and internal rotation. Stability was confirmed with no shuck at 90 degrees of external rotation and 30 degrees of extension. No impingement through range of motion arc. Final x-ray images were obtained with fluoroscopy to confirm adequate positioning and no intraoperative fracture. The deep tissues were thoroughly irrigated with Surgiphor, betadine solution. This was allowed to sit in the wound for 3 minutes before being thoroughly irrigated out with normal saline. The capsule was then reapproximated with the previously placed Ethibond sutures. The TFL fascia was finally closed with a No. 2 Stratafix, barbed suture. Deep tissues were then reapproximated with 0 Vicryl and a running 2-0 Vicryl. The skin was closed with a running 4-0 Monocryl in a subcuticular fashion. This was reinforced with skin glue. A Mepilex silver dressing was applied. At the end of the case, all counts were correct. Martell was transferred to the hospital bed without difficulty and suffering no apparent complication. Martell has a good prognosis. Physical therapy will start today and without restrictions, weight-bearing as tolerated. His home dose of Aspirin and Plavix will be used for DVT prophylaxis.
== END 2022-07-30 12:58 | disposition home or self-care (01) ==
PROVIDERS: PCP Family Medicine; Visit Provider Student in an Organized Health Care Education/Training Program
PROC: (CPT 27130; principal; 2022-07-30 07:30)
DX: M16.11 Unilateral primary osteoarthritis, right hip (principal); I10 Essential (primary) hypertension
CPT/HCPCS: 20985; 27130; C1776; 97162; 97530; 73501; J0690; J1100; J1170; J2405; J2704

== ENCOUNTER 2022-08-12 09:21 | Outpatient (CLI) | payer MEDICARE, OTHER, SELFPAY ==
--- NOTE | 2022-08-12 09:00 | DI.RAD_ITS ---
Exam(s) XR HIP RT COMPLETE AP PELVIS EXAM: XR HIP RT COMPLETE AP PELVIS CLINICAL HISTORY: 1st post op R IVORY. TECHNIQUE: 2D digital imaging was performed. COMPARISON: CR XR PELVIS AP from 01/07/2022 XA XR HIP RT IN OR from 07/30/2022 . Also 07/30/2022 images. FINDINGS: Two views: Status factory position and appearance of the recently placed arthroplasty components. No fracture o r loosening evident. IMPRESSION: Satisfactory appearance. DATA REPOSITORY: RADIATION DOSE DELIVERED:
== END 2022-08-12 09:22 | disposition home or self-care (01) ==
LOC: DIORS 09:22
PROVIDERS: PCP Family Medicine; Referring Provider Family Medicine; Visit Provider Student in an Organized Health Care Education/Training Program
DX: Z96.641 Presence of right artificial hip joint (principal); Z47.1 Aftercare following joint replacement surgery
CPT/HCPCS: 73502

== ENCOUNTER 2022-09-12 10:37 | Outpatient (CLI) | payer MEDICARE, OTHER, SELFPAY | END 2022-09-12 10:38 | disposition home or self-care (01) | LOC: DIORS 10:37 | PROVIDERS: PCP Family Medicine; Referring Provider Family Medicine; Visit Provider Student in an Organized Health Care Education/Training Program | DX: Z47.1 Aftercare following joint replacement surgery (principal); Z96.641 Presence of right artificial hip joint ==

== ENCOUNTER 2023-06-11 04:17 | Outpatient (CLI) | payer MEDICARE, OTHER, SELFPAY ==
[2023-06-11 08:36] LABS: ALT 35 U/L (16-63); AST 17 U/L (15-37); Albumin 4.3 g/dL (3.4-5.0); Alkaline Phosphatase 73 U/L (46-116); Anion Gap 8.1 mmol/L (3-11); BUN 10 mg/dL (7-18); Bilirubin, Total 0.8 mg/dL (0.2-1.0); CO2 29.9 mmol/L (21.0-32.0); CREATININE 0.9 mg/dL (0.70-1.30); Calcium 9.6 mg/dL (8.5-10.1); Chloride 104 mmol/L (98-107); Estimated GFR 89.62 (mL/min/1.73m2); Glucose 104 mg/dL (74-106); Potassium 4.3 mmol/L (3.5-5.1); Sodium 142 mmol/L (136-145); Total Protein 7.7 g/dL (6.4-8.2)
== END 2023-06-11 04:18 | disposition home or self-care (01) ==
LOC: LBO 04:18
PROVIDERS: PCP Family Medicine; Visit Provider Family Medicine
DX: I10 Essential (primary) hypertension (principal)
CPT/HCPCS: 36415; 80053

== ENCOUNTER 2023-07-31 11:53 | Outpatient (CLI) | payer MEDICARE, OTHER, SELFPAY ==
--- NOTE | 2023-07-31 09:00 | DI.RAD_ITS ---
Exam(s) XR HIP RT AP LAT ONLY EXAM: XR HIP RT AP LAT ONLY CLINICAL HISTORY: ANNUAL F/U R IVORY. TECHNIQUE: 2D digital imaging was performed. Two images were obtained. AP and lateral views were ob tained. COMPARISON: CR XR HIP RT COMPLETE AP PELVIS from 08/12/2022 FINDINGS: BONES: There are stable post operative changes of a right total hip replacement present. No fracture or dislocation. JOINTS: The orthopedic hardware is in good position. No evidence of hardware loosening. SOFT TISSUE: Normal. IMPRESSION: Stable right total hip replacement. DATA REPOSITORY: RADIATION DOSE DELIVERED:
== END 2023-07-31 11:54 | disposition home or self-care (01) ==
LOC: DIORS 11:53
PROVIDERS: PCP Family Medicine; Visit Provider Student in an Organized Health Care Education/Training Program
DX: Z47.1 Aftercare following joint replacement surgery (principal); Z96.641 Presence of right artificial hip joint
CPT/HCPCS: 99213; 73502

== ENCOUNTER 2024-07-16 14:24 | Outpatient (REF) | payer MEDICARE, OTHER, SELFPAY ==
[2024-07-16 13:26] LABS: ALT 46 U/L (16-63); AST 24 U/L (15-37); Albumin 4.3 g/dL (3.4-5.0); Alkaline Phosphatase 102 U/L (46-116); Anion Gap 6.5 mmol/L (3-11); BUN 13 mg/dL (7-18); Bilirubin, Total 0.5 mg/dL (0.2-1.0); CO2 30.5 mmol/L (21.0-32.0); Calcium 9.5 mg/dL (8.5-10.1); Calculated LDL 77 mg/dL (<100); Chloride 107 mmol/L (98-107); Cholesterol 210 mg/dL (<200); Estimated GFR 78.49 (mL/min/1.73m2); Glucose 104 mg/dL (74-106); HDL Cholesterol 117 mg/dL (>or=40); Potassium 4.4 mmol/L (3.5-5.1); Sodium 144 mmol/L (136-145); Total Protein 7.3 g/dL (6.4-8.2); Triglyceride 80 mg/dL (<150)
[2024-07-19 09:48] LABS: PSA, Screening 3.7 ng/mL (<=6.5)
== END 2024-07-16 14:25 | disposition home or self-care (01) ==
LOC: LBN 14:24
PROVIDERS: PCP Family Medicine; Visit Provider Family Medicine
DX: Z00.00 Encounter for general adult medical examination without abnormal findings (principal); I10 Essential (primary) hypertension; Z13.6 Encounter for screening for cardiovascular disorders; E78.2 Mixed hyperlipidemia; F10.90 Alcohol use, unspecified, uncomplicated
CPT/HCPCS: 80053; 80061; 84153